=== PATIENT | male | born 1975 | race Caucasian/White ===

== ENCOUNTER → 2017-03-29 | Emergency (ER) | payer SELFPAY ==
[~2017-03-29] MED LIST: NAPROXEN 500 MG TABLET (FP) PO ONE
[2017-03-29 20:46] VITALS: BP 121/81; PULSE 79; TEMP 98.4; BMI 26.4
--- NOTE | 2017-03-29 21:55 | PDOC ---
History of Present Illness - General History Source: Patient Exam Limitations: No Limitations - History of Present Illness Initial Comments: 03/29/17 22:27 Pt c/o chest pain after heavy lifting. Pt denies any medical problems. Denies smoking or drug use. Didn't take any thing for pain. <SohailEthan marie - Last Filed: 03/29/17 22:16> <Sommer Sutton - Last Filed: 03/29/17 22:35> - General Chief Complaint: Pain Stated Complaint: CHEST PAIN Time Seen by Provider: 03/29/17 21:51 Past History - Past Medical History GI Disorders: Yes (GERD) - Psycho/Social/Smoking Cessation Hx Suicidal Ideation: No Smoking History: Former smoker Have you smoked in the past 12 months: No If you are a former smoker, when did you quit?: 10 yrs ago Information on smoking cessation initiated: No Hx Alcohol Use: No Drug/Substance Use Hx: No Substance Use Type: None <SohailEthan marie - Last Filed: 03/29/17 22:16> <Sommer Sutton - Last Filed: 03/29/17 22:35> - Past Medical History Allergies/Adverse Reactions: Allergies Allergy/AdvReac Type Severity Reaction Status Date / Time No Known Allergies Allergy Verified 03/29/17 20:43 Review of Systems - Review of Systems Able to Perform ROS?: Yes Is the patient limited Hebrew proficient: No Constitutional: Yes: Symptoms Reported, See HPI. No: Chills, Diaphoresis, Fever , Loss of Appetite, Malaise, Weight Stable HEENTM: Yes: Symptoms Reported, See HPI. No: Eye Pain, Blurred Vision, Tearing , Recent change in vision, Double Vision, Cataracts, Ear Pain, Ocular Prothesis , Ear Discharge, Nose Pain, Nose Congestion, Tinnitus, Throat Swelling, Mouth Pain, Other Respiratory: Yes: Symptoms reported, See HPI. No: Cough, Orthopnea, Shortness of Breath, SOB with Exertion, SOB at Rest, Stridor, Productive cough Cardiac (ROS): Yes: Symptoms Reported, See HPI, Chest Pain, Edema. No: Irregular Heart Rate, Lightheadedness, Syncope, Chest Tightness, Other ABD/GI: Yes: Symptoms Reported, See HPI. No: Abdominal Distended, Abd. Pain w/ defecation, Blood Streaked Bowels, Constipated, Diarrhea, Nausea, Poor Appetite , Poor Fluid Intake, Abdominal cramping : Yes: Symptoms Reported, See HPI. No: Burning, Dysuria, Discharge, Frequency , Flank Pain, Hematuria, Urgency, Testicular Swelling Musculoskeletal: Yes: Symptoms Reported, See HPI. No: Back Pain, Gout, Joint Pain, Joint Swelling, Muscle Pain, Neck Pain Integumentary: Yes: Symptoms Reported, See HPI. No: Bruising, Change in Color, Change in Hair/Nails, Dryness, Erythema, Flushing, Lesions, Lumps Neurological: Yes: Symptoms reported, See HPI. No: Headache, Numbness, Paresthesia, Pre-Existing Deficit, Seizure, Weakness Psychiatric: No: Anxiety, Depression, Frequent Crying, Stressors, Sleep Pattern Change, Other Endocrine: Yes: Symptoms Reported, See HPI. No: Excessive Sweating, Flushing, Intolerance to Cold, Increased Hunger, Increased Thirst, Increased Urine, Unexplained Weight Gain Hematologic/Lymphatic: Yes: Symptoms Reported, See HPI. No: Anemia, Blood Clots , Easy Bleeding, Easy Bruising, Bleeding Diathesis <Ethan Thrasher - Last Filed: 03/29/17 22:16> *Physical Exam - Vital Signs Last Vital Signs Temp Pulse Resp BP Pulse Ox 98.4 F 79 18 121/81 99 03/29/17 20:44 03/29/17 20:44 03/29/17 20:44 03/29/17 20:44 03/29/17 20:44 - Physical Exam Comments: 03/29/17 22:25 *Physical Exam General Appearance: Yes: Appropriately Dressed. No: Apparent Distress, Intoxicated HEENT: positive: EOMI, WILFRED, Normal ENT Inspection, Normal Voice, TMs Normal, Pharynx Normal. negative: Pale Conjunctivae, Photophobia, Scleral Icterus (R), Scleral Icterus (L) Neck: positive: Trachea midline, Normal Thyroid, Supple. negative: Tender, Rigid, Carotid bruit, Stridor, Lymphadenopathy (R), Lymphadenopathy (L), Thyromegaly Respiratory/Chest: positive: Lungs Clear, Normal Breath Sounds. negative: Chest Tender, Respiratory Distress, Accessory Muscle Use, Labored Respiration, RES, Crackles, Rales, Rhonchi, Stridor, Wheezing, Dullness Cardiovascular: positive: Regular Rhythm, Regular Rate, S1, S2. negative: Edema , JVD, Murmur, Bradycardia, Tachycardia Vascular Pulses: Dorsalis-Pedis (R): 2+, Doralis-Pedis (L): 2+ Gastrointestinal/Abdominal: positive: Normal Bowel Sounds, Flat, Soft. negative : Tender, Organomegaly, Pulsatile Mass, Increased Bowel Sounds, Decreased BS, Distended, Guarding, Rebound, Hernia, Hepatomegaly, Spleenomegaly Lymphatic: negative: Adenopathy, Tenderness Musculoskeletal: positive: Normal Inspection. negative: CVA Tenderness, Decreased Range of Motion Extremity: positive: Normal Capillary Refill, Normal Inspection, Normal Range of Motion, Pelvis Stable. negative: Tender, Pedal Edema, Swelling, Erythema Integumentary: positive: Normal Color, Dry, Warm. 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 negative: EOM Palsy, Facial Droop, Sensory Deficit <Ethan Thrasher - Last Filed: 03/29/17 22:16> - Vital Signs Last Vital Signs Temp Pulse Resp BP Pulse Ox 98.4 F 79 18 121/81 99 03/29/17 20:44 03/29/17 20:44 03/29/17 20:44 03/29/17 20:44 03/29/17 20:44 <Sommer Sutton - Last Filed: 03/29/17 22:35> Heart Score/ECG Review - ECG Impressions Comment:: 03/29/17 22:35 NSR @78bpm Normal ECG <Sommer Sutton - Last Filed: 03/29/17 22:35> ED Treatment Course - Medications Given in the ED: ED Medications Discontinued Medications Generic Name Dose Route Start Last Admin Trade Name Freq PRN Reason Stop Dose Admin Naproxen 500 mg 03/29/17 21:57 03/29/17 22:30 Naprosyn - PO 03/29/17 21:58 Not Given ONCE ONE <Sommer Sutton - Last Filed: 03/29/17 22:35> Medical Decision Making - Medical Decision Making 03/29/17 22:1 Dr. Thrasher: The scribe's documentation has been prepared under my direction and personally reviewed by me in its entirery. I confirm that the note above accurately reflects all work, treatment, procedures, and medical decision making performed by me. patient c/o chest pain, but didn't want to wait for anything to be done. Pt walked out. <Ethan Thrasher - Last Filed: 03/29/17 22:16> *DC/Admit/Observation/Transfer - Discharge Dispostion Admit: No <Ethan Thrasher - Last Filed: 03/29/17 22:16> <Sommer Sutton - Last Filed: 03/29/17 22:35> Diagnosis at time of Disposition: Chest pain Qualifiers: Chest pain type: unspecified Qualified Code(s): R07.9 - Chest pain, unspecified - Discharge Dispostion Disposition: ELOPED Condition at time of disposition: Stable
--- NOTE | 2017-03-30 13:02 | EKG ---
Test Reason : Blood Pressure : / mmHG Vent. Rate : 078 BPM Atrial Rate : 078 BPM P-R Int : 188 ms QRS Dur : 096 ms QT Int : 372 ms P-R-T Axes : 060 084 056 degrees QTc Int : 424 ms NORMAL SINUS RHYTHM NORMAL ECG NO PREVIOUS ECGS AVAILABLE REPEAT EKG IF CLINICALLY INDICATED Confirmed by TAWNYA FIGUEROA MD ([id number]) on 03/30/2017 1:01:46 PM Referred By: Confirmed By:ATWNYA FIGUEROA MD
== END | disposition left against medical advice (07) ==
LOC: JER 20:31
CPT/HCPCS: 93005; 93010; 99281-25

== ENCOUNTER 2017-04-13 19:53 | Emergency (ER) | payer SELFPAY ==
[2017-04-13 20:14] VITALS: BP 146/76; PULSE 63; TEMP 98.5; BMI 26.4
[2017-04-13] MEDS ORDERED: TRIAMCINOLONE ACET 40MG/1ML VIAL ONE (21:41)
[2017-04-13] MEDS ORDERED: TRIAMCINOLONE ACET 40MG/1ML VIAL IM ONE (21:45)
[2017-04-13] MEDS ORDERED: diphenhydrAMINE HCL 25 MG CAPSULE (FP) PO ONE ×2 (21:46→21:48)
--- NOTE | 2017-04-13 21:52 | PDOC ---
History of Present Illness - General Chief Complaint: Rash Stated Complaint: RASH Time Seen by Provider: 04/13/17 21:10 History Source: Patient Exam Limitations: No Limitations - History of Present Illness Initial Comments: 04/13/17 21:49 Came to emergency department for evaluation of acute onset of itching hives and wheals to his right leg that spread to his left leg and now has some issues to his back. Patient is uncertain as to cause and has reviewed any new soaps lotions, creams, detergents, no outdoor or environmental exposures, no one else at home with a rash. Patient denies swelling to lips tongue or breathing problems, has no history of ALLERGIES, and no recent travel. Timing/Duration: reports: changing over time, getting worse Severity: Yes: mild, moderate Location: reports: extremities, torso Respiratory Risk Factors: reports: no cause identified Modifying Factors: worse with: antihistamine Associated Symptoms: reports: denies symptoms Past History - Travel Traveled outside of the country in the last 30 days: No Close contact w/someone who was outside of country & ill: No - Past Medical History Allergies/Adverse Reactions: Allergies Allergy/AdvReac Type Severity Reaction Status Date / Time No Known Allergies Allergy Verified 03/29/17 20:43 Home Medications: Ambulatory Orders NK [No Known Home Medication] 04/13/17 GI Disorders: Yes (GERD) - Psycho/Social/Smoking Cessation Hx Suicidal Ideation: No Smoking History: Former smoker Have you smoked in the past 12 months: No If you are a former smoker, when did you quit?: 10 yrs ago Information on smoking cessation initiated: No Hx Alcohol Use: No Drug/Substance Use Hx: No Substance Use Type: None Review of Systems - Review of Systems Able to Perform ROS?: Yes Is the patient limited Croatian proficient: Yes Constitutional: Yes: See HPI. No: Symptoms Reported, Fever, Loss of Appetite, Malaise HEENTM: Yes: See HPI. No: Symptoms Reported, Nose Congestion, Throat Swelling, Difficulty Swallowing, Mouth Swelling Respiratory: Yes: See HPI. No: Symptoms reported, Cough, Shortness of Breath, Wheezing Integumentary: Yes: Symptoms Reported, See HPI, Flushing, Lesions, Pruritus, Rash Neurological: No: Symptoms reported All Other Systems: Reviewed and Negative *Physical Exam - Vital Signs Last Vital Signs Temp Pulse Resp BP Pulse Ox 98.5 F 63 17 146/76 100 04/13/17 20:12 04/13/17 20:12 04/13/17 20:12 04/13/17 20:12 04/13/17 20:12 - Physical Exam General Appearance: Yes: Nourished, Appropriately Dressed, Apparent Distress, Mild Distress HEENT: positive: WILFRED, Normal ENT Inspection (no swelling, airway closure, or evidence of angioedema noted), TMs Normal, Pharynx Normal Neck: negative: Tender Respiratory/Chest: positive: Lungs Clear, Normal Breath Sounds. negative: Wheezing Musculoskeletal: positive: Normal Inspection Extremity: positive: Normal Capillary Refill, Normal Inspection, Normal Range of Motion Integumentary: positive: Pale, Other (multiple areas of confluent hives and wheal-like lesions noted on thighs, bilateral, abdomen, and one noted on back. There is none noted above waist) Neurologic: positive: ux consultant II-XII NML intact, Fully Oriented, Alert, Normal Mood/ Affect, Normal Response, Motor Strength 5/5 Progress Note - Progress Note Progress Note: ALLERGIC reaction of unknown etiology, will treat with Kenalog aND ANTIHISTAMINE *DC/Admit/Observation/Transfer Diagnosis at time of Disposition: Hives - Discharge Dispostion Disposition: HOME Condition at time of disposition: Stable Admit: No - Patient Instructions Printed Discharge Instructions: DI for General Allergic Reactions Additional Instructions: Rest, drink lots of fluids: Teas, water, soups Avoid contact with allergens, exposure to pollens, close windows on a windy day Lots of handwashing and good hygiene Continue [id number] medications for symptomatic relief- may use allergic eyedrops for itching I Continue antihistamines daily until pollen season is over; Zyrtec, Claritin, Tiffani during the daytime and Benadryl at nighttime as will make sleepy Tylenol or Motrin for fever and pain Followup with private physician in one to 2 days as needed Consider following up with an installer/sanitizer for skin testing and possible allergy shots Return to emergency department for worsened symptoms, fevers, dehydration - Post Discharge Activity Work/School Note: Back to Work
== END 2017-04-13 22:08 | disposition home or self-care (01) ==
LOC: JERFT 19:53
PROC: 3E0233Z Introduction of Anti-inflammatory into Muscle, Percutaneous Approach (ICD-10-PCS; principal; 2017-04-13)
DX: L50.9 Urticaria, unspecified (principal)
CPT/HCPCS: 99281-25

== ENCOUNTER 2018-08-18 14:46 | Emergency (ER) | payer OTHER ==
--- NOTE | 2018-08-18 14:55 | PDOC ---
Rapid Medical Evaluation Time Seen by Provider: 08/18/18 14:53 Medical Evaluation: Allergies Allergy/AdvReac Type Severity Reaction Status Date / Time No Known Allergies Allergy Verified 06/14/17 19:20 08/18/18 14:53 Pt c/o: back pain intermittent x months, no other complaints, took no meds and did not see a provider Pt on exam: no midline tenderness, no edema Pt ordered for: none Pt to proceed to the ED Discharge Disposition - Diagnosis Back pain - Referrals - Patient Instructions - Post Discharge Activity
[2018-08-18 14:57] VITALS: BP 141/91; PULSE 88; TEMP 98.6; BMI 27.5
--- NOTE | 2018-08-18 16:27 | PDOC ---
History of Present Illness - General Chief Complaint: Pain Stated Complaint: BACK PAIN Time Seen by Provider: 08/18/18 14:53 History Source: Patient Exam Limitations: No Limitations - History of Present Illness Initial Comments: 08/18/18 16:22 Patient came to emergency department with complaints of multiple months of mid and low back pain. States comes and goes but has steadily worse. May have injured himself at gym 8 months ago doing heavy lifting but has never had evaluation. Has taken no medication for relief of pain as "I do not like to drink medicine" . Denies numbness or tingling to hands or feet, denies any problems with bowel or bladder, denies fever or any recent illness. 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 08/18/18 19:04 Occurred: reports: other Severity: reports: mild, moderate Pain Location: reports: back Method of Injury: Yes: unknown Loss of Consciousness: no loss of consciousness Associated Symptoms (Fall): denies symptoms Past History - Travel Traveled outside of the country in the last 30 days: No Close contact w/someone who was outside of country & ill: No - Past Medical History Allergies/Adverse Reactions: Allergies Allergy/AdvReac Type Severity Reaction Status Date / Time No Known Allergies Allergy Verified 06/14/17 19:20 Home Medications: Ambulatory Orders Cyclobenzaprine HCl 10 mg PO Q8H PRN #14 tablet 08/18/18 Naproxen [Naprosyn -] 500 mg PO BID #30 tablet 08/18/18 COPD: No GI Disorders: Yes (GERD) - Surgical History Cholecystectomy: Yes - Suicide/Smoking/Psychosocial Hx Smoking History: Never smoked Have you smoked in the past 12 months: No If you are a former smoker, when did you quit?: 10 yrs ago Information on smoking cessation initiated: No Hx Alcohol Use: No Drug/Substance Use Hx: No Substance Use Type: None Review of Systems - Review of Systems Able to Perform ROS?: Yes Is the patient limited Greenlandic proficient: Yes Constitutional: Yes: Symptoms Reported, See HPI, Malaise. No: Fever HEENTM: Yes: See HPI. No: Symptoms Reported Respiratory: Yes: See HPI. No: Symptoms reported ABD/GI: Yes: Symptoms Reported, See HPI, Nausea, Abdominal cramping ( intermittant RUQ pain for years / post op [place] years ago) : Yes: See HPI. No: Symptoms Reported Musculoskeletal: Yes: Symptoms Reported, See HPI, Back Pain, Muscle Pain. No: Muscle Weakness Integumentary: No: Symptoms Reported All Other Systems: Reviewed and Negative *Physical Exam - Vital Signs Last Vital Signs Temp Pulse Resp BP Pulse Ox 98.6 F 88 18 141/91 99 08/18/18 14:53 08/18/18 14:53 08/18/18 14:53 08/18/18 14:53 08/18/18 14:53 - Physical Exam General Appearance: Yes: Nourished, Appropriately Dressed, Apparent Distress, Mild Distress HEENT: positive: WILFRED, Normal ENT Inspection, TMs Normal, Pharynx Normal Neck: positive: Supple. negative: Tender Respiratory/Chest: positive: Lungs Clear, Normal Breath Sounds Gastrointestinal/Abdominal: positive: Normal Bowel Sounds, Soft Musculoskeletal: positive: Normal Inspection, Decreased Range of Motion (mild diminished), Muscle Spasm (tight tense muscle groups to the paravertebral spinous muscles at waistline worse on the right than the left). 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 intact, Fully Oriented, Alert, Normal Mood/ Affect, Normal Response, Motor Strength 5/5 Moderate Sedation - Procedure Monitoring Vital Signs: Procedure Monitoring Vital Signs Temperature 98.6 F 08/18/18 14:53 Pulse Rate 88 08/18/18 14:53 Respiratory Rate 18 08/18/18 14:53 Blood Pressure 141/91 08/18/18 14:53 O2 Sat by Pulse Oximetry (%) 99 08/18/18 14:53 Progress Note - Progress Note Progress Note: Back strain, will treat with NSAIDs and cyclobenzaprine *DC/Admit/Observation/Transfer Diagnosis at time of Disposition: Back pain Qualifiers: Back pain location: low back pain Chronicity: unspecified Back pain laterality : bilateral Sciatica presence: without sciatica Qualified Code(s): M54.5 - Low back pain - Discharge Dispostion Disposition: HOME Condition at time of disposition: Stable Decision to Admit order: No - Prescriptions Prescriptions: Cyclobenzaprine HCl 10 mg PO Q8H PRN #14 tablet PRN Reason: spasm Naproxen [Naprosyn -] 500 mg PO BID #30 tablet - Referrals - Patient Instructions Printed Discharge Instructions: DI for Back Spasm Additional Instructions: Rest, no heavy lifting or exercise until pain is resolved Hot soaks to neck and low back as often as possible/hot showers or Jacuzzis No massage or therapy until spasm is gone Continue Naprosyn 500 mg tablet, 1 tablet every 8 hours for the next 3 days then as needed for pain and swelling Cyclobenzaprine 1-10mg every 8 hours as needed for spasm If not significant improvement within 24 hours with medication and rest regime, followup with private physician for change in medications and /or therapy. - Post Discharge Activity Forms/Work/School Notes: Back to Work
[2018-08-18 16:43] LABS: URINE APPEARANCE CLEAR; URINE BILIRUBIN NEGATIVE (<2.0 mg/dL); URINE COLOR LTYELLOW; URINE GLUCOSE (UA) NEGATIVE (NEGATIVE); URINE KETONE NEGATIVE (NEGATIVE); URINE LEUK ESTERASE NEGATIVE (NEGATIVE); URINE NITRITE NEGATIVE (NEGATIVE); URINE PROTEIN NEGATIVE (NEGATIVE); URINE UROBILINOGEN NEGATIVE mg/dL (0.2-1.0)
[2018-08-18 17:01] LABS: URINE MUCUS RARE
== END 2018-08-18 17:10 | disposition home or self-care (01) ==
LOC: JERFT 14:46
DX: S39.012A Strain of muscle, fascia and tendon of lower back, initial encounter (principal); X50.0XXA Overexertion from strenuous movement or load, initial encounter; Y93.89 Activity, other specified; Y92.89 Other specified places as the place of occurrence of the external cause; Y99.8 Other external cause status
CPT/HCPCS: 81003; 81015; 99281-25

== ENCOUNTER → 2018-12-08 | Emergency (ER) | payer OTHER ==
[2018-12-08 10:35] VITALS: BP 116/80; PULSE 87; TEMP 98.7; BMI 28.1
--- NOTE | 2018-12-08 11:36 | PDOC ---
History of Present Illness - General Chief Complaint: Lightheaded Stated Complaint: DIZZYNESS Time Seen by Provider: 12/08/18 11:08 History Source: Patient - History of Present Illness Initial Comments: 12/08/18 11:22 43 year old male history of vertigo currently on Valium. patient reports that he ran out of medication has dizziness. patient does not have a PCP patient is here for refill. Past History - Past Medical History Allergies/Adverse Reactions: Allergies Allergy/AdvReac Type Severity Reaction Status Date / Time No Known Allergies Allergy Verified 06/14/17 19:20 Home Medications: Ambulatory Orders Diazepam [Valium] 5 mg PO DAILY PRN 5 Days #5 tablet MDD 1 12/08/18 Diphenhydramine HCl [Benadryl -] 25 mg PO Q6H PRN #14 capsule 12/08/18 Omeprazole 20 mg PO PRN PRN 12/08/18 COPD: No GI Disorders: Yes (GERD) Other medical history: vertigo - Surgical History Cholecystectomy: Yes - Immunization History Immunization Up to Date: No - Suicide/Smoking/Psychosocial Hx Smoking History: Never smoked Have you smoked in the past 12 months: No If you are a former smoker, when did you quit?: 10 yrs ago Information on smoking cessation initiated: No Hx Alcohol Use: No Drug/Substance Use Hx: No Substance Use Type: None Review of Systems - Review of Systems Able to Perform ROS?: Yes Is the patient limited Italian proficient: No Constitutional: No: Symptoms Reported, See HPI, Chills, Diaphoresis, Fever, Loss of Appetite, Malaise, Night Sweats, Weakness, Weight Stable, Unintentional Wgt. Loss, Unexplained wgt Loss, Other Neurological: Yes: Dizziness. No: Symptoms reported, See HPI, Headache, Numbness, Paresthesia, Pre-Existing Deficit, Seizure, Tingling, Tremors, Weakness, Unsteady Gait, Ataxia, Other *Physical Exam - Vital Signs Last Vital Signs Temp Pulse Resp BP Pulse Ox 98.7 F 87 18 116/80 100 12/08/18 10:32 12/08/18 10:32 12/08/18 10:32 12/08/18 10:32 12/08/18 10:32 - Physical Exam General Appearance: Yes: Appropriately Dressed Extremity: positive: Normal Capillary Refill, Normal Inspection, Normal Range of Motion Integumentary: positive: Normal Color, Dry, Warm Neurologic: positive: Fully Oriented, Alert, Other (+ hill schilling [place]) Medical Decision Making - Medical Decision Making 12/08/18 11:36 A: vertigo P: patient was referred to the [facility] Primary clinic by Diaz. patient will get a call from the office tomorrow. patient is aware of this and the importance of follow up was discussed with patient. will give valium. patient reports meclizine to cause drowsiness. reports that valium works better. will give benadryl instead. *DC/Admit/Observation/Transfer Diagnosis at time of Disposition: Vertigo - Discharge Dispostion Disposition: HOME Condition at time of disposition: Stable - Prescriptions Prescriptions: Diazepam [Valium] 5 mg PO DAILY PRN 5 Days #5 tablet MDD 1 PRN Reason: Vertigo Diphenhydramine HCl [Benadryl -] 25 mg PO Q6H PRN #14 capsule PRN Reason: vertigo - Referrals Referrals: Nelson Lundy MD [Staff Physician] - Call tomorrow - Patient Instructions Printed Discharge Instructions: Benign Paroxysmal Positional Vertigo Additional Instructions: It is important to drink plenty of fluids. Careful when going from sitting to standing duty or dizziness. You are given Benadryl and Valium which is to help with the vertigo. Both medications can make you sleepy and drowsy. Do not drive or operate heavy machinery after taking this medication. You will be getting a call from the primary care clinic in the next 1-2 days. Please call please call the clinic if he do not hear from them. - Post Discharge Activity Forms/Work/School Notes: Back to Work
== END | disposition home or self-care (01) ==
LOC: JERFT 10:27
DX: R42 Dizziness and giddiness (principal)
CPT/HCPCS: 99281-25

== ENCOUNTER 2018-12-26 10:54 | Inpatient (IN) | payer OTHER ==
[2018-12-26 11:35] VITALS: BMI 27.5
[2018-12-26] MEDS ORDERED: SUCRALFATE 1 GM TABLET (FP) PO ONE (11:57)
[2018-12-26] MEDS ORDERED: FAMOTIDINE 20 MG/50 ML IVPB 20 MG/50 ML MG IVPB ONE ×2 (11:57→12:38)
--- NOTE | 2018-12-26 12:01 | PDOC ---
History of Present Illness - General History Source: Patient - History of Present Illness Timing/Duration: reports: constant, getting worse Quality: reports: severe Abdominal Pain Onset Location: reports: epigastric Pain Radiation: reports: back <Ellen Lara - Last Filed: 12/27/18 07:23> <Christie Cedeno - Last Filed: 12/27/18 14:57> - General Chief Complaint: Pain, Acute Stated Complaint: ABD PAIN Time Seen by Provider: 12/26/18 11:54 Past History - Past Medical History COPD: No GI Disorders: Yes (GERD) - Surgical History Cholecystectomy: Yes - Immunization History Immunization Up to Date: No - Suicide/Smoking/Psychosocial Hx Smoking History: Never smoked Have you smoked in the past 12 months: No If you are a former smoker, when did you quit?: 10 yrs ago Hx Alcohol Use: No Drug/Substance Use Hx: No Substance Use Type: None <Ellen Lara - Last Filed: 12/27/18 07:23> <PaoChristie Cedenoizabel - Last Filed: 12/27/18 14:57> - Past Medical History Allergies/Adverse Reactions: Allergies Allergy/AdvReac Type Severity Reaction Status Date / Time No Known Allergies Allergy Verified 12/26/18 11:32 Home Medications: Ambulatory Orders Omeprazole 20 mg PO PRN PRN 12/08/18 Review of Systems - Review of Systems Constitutional: No: Chills, Fever Respiratory: No: Shortness of Breath Cardiac (ROS): No: Chest Pain ABD/GI: No: Constipated, Diarrhea, Nausea, Rectal Bleeding, Vomiting, Tarry Stools : No: Dysuria, Flank Pain, Hematuria <Ellen Lara - Last Filed: 12/27/18 07:23> *Physical Exam - Vital Signs Last Vital Signs Temp Pulse Resp BP Pulse Ox 98.1 F 73 18 117/78 99 12/26/18 11:32 12/26/18 11:32 12/26/18 11:32 12/26/18 11:32 12/26/18 11:32 - Physical Exam General Appearance: Yes: Appropriately Dressed. No: Apparent Distress HEENT: positive: Normal Voice Neck: positive: Supple Respiratory/Chest: positive: Lungs Clear, Normal Breath Sounds. negative: Respiratory Distress Cardiovascular: positive: Regular Rate, S1, S2 Gastrointestinal/Abdominal: positive: Normal Bowel Sounds, Tender (to epigastrium and RUQ), Soft. negative: Distended, Guarding, Rebound Musculoskeletal: negative: CVA Tenderness Integumentary: positive: Dry, Warm Neurologic: positive: Fully Oriented, Alert, Normal Mood/Affect <Beatriz LaraVivianeShaila - Last Filed: 12/27/18 07:23> - Vital Signs Last Vital Signs Temp Pulse Resp BP Pulse Ox 98.1 F 73 18 117/78 99 12/26/18 11:32 12/26/18 11:32 12/26/18 11:32 12/26/18 11:32 12/26/18 11:32 <Christie Cedeno - Last Filed: 12/27/18 14:57> ED Treatment Course - LABORATORY CBC & Chemistry Diagram: 12/26/18 13:25 12/26/18 13:25 <Beatriz LaraVivianeShaila - Last Filed: 12/27/18 07:23> - LABORATORY CBC & Chemistry Diagram: 12/27/18 07:16 12/27/18 07:16 <Christie Cedeno - Last Filed: 12/27/18 14:57> Medical Decision Making - Medical Decision Making 12/26/18 11:54 43 yo M, h/o GERD, p/w upper abdominal pain. Patient states for the past month he's had intermittent epigastric pain radiating to his back that worsened 1 week ago, now constant and worse with po. Possible excessive belching. No nausea, vomiting, change to bowel movements, melena, bright red blood per rectum , fever or chills. Reports dark urine this am but no dysuria, BRB or flank pain. States current symptoms does feel like his GERD but is taking omeprazole daily with no relief. Last time seen by GI was 5 years ago when patient also had an EGD, but does not remember results per patient. No history of peptic ulcer disease. See exam Possible GERD flare given hx, consider choledocholithiases (s/p kiara remotely) vs pancreatitis given r/t back, unlikely appy or ACS -GI cocktail -labs r/o other source -anticipate dc w/ GI f/u 12/26/18 14:40 LFTs sig elevated, no old to compare. Lipase wnl. US pending 12/26/18 16:25 US read as no e/o biliary dilitation or other acute pathology. Per discussion with patient, might have been told he had elevated LFTs of unclear etiology in past. Denies h/o ETOH abuse, excessive tylenol use, hepatitis, h/o IVDA or recent travel. No unexplained weight loss. Will scan at this time and send hep panel and coags as d/w ED attg 12/26/18 18:28 CT read as mild dilation of intrahepatic biliary tree, w/ CBD 8mm w/ no e/o CBD stone, MRCP recommended for further eval. Pt states epigastric pain now coming back now. Will c/w GI at this time 12/26/18 19:31 Case d/w Dr Waters of GI who is concerned for possible cholodocholiathisis/ cholangitis. Rec blood cx, MRCP, npo and admit. Pt signed out to CAROL Glaser pending admission <Ellen Lara - Last Filed: 12/27/18 07:23> - Medical Decision Making The patient was seen and evaluated in conjunction with midlevel provider under my direct supervision, ancillary studies were reviewed. I agree with the plan as outlined JOON Lara. HPI, workup/dispo as outlined. VS reviewed, wnl. s/p kiara, but +transaminitis present significantly raising concern for choledocholithiasis with very small stones/sludge in biliary tree. t bili elevated. no e/o sepsis, no fever no leukocytosis. retained biliary stones, Abdomen US indicated. though abdomen US revealed no e/o stones, with some intra hepatic duct dilation , I have reviewed and visualized densities and shadowing of stones - suggestive of retained biliary stones/choledocholithiasis. will need admission, GI cs with dr Waters and MRCP vs ERCP and further elucidate/management 12/26/18 12:32 12/26/18 15:34 12/27/18 14:55 12/27/18 14:56 <Christie Cedeno - Last Filed: 12/27/18 14:57> *DC/Admit/Observation/Transfer <Ellen Lara - Last Filed: 12/27/18 07:23> <Christie Cedeno - Last Filed: 12/27/18 14:57> Diagnosis at time of Disposition: Epigastric pain, Elevated LFTs
[2018-12-26] MEDS ORDERED: SUCRALFATE 1 GM TABLET (FP) ONE (13:12)
[2018-12-26 13:41] LABS: BASO % 0.8 % (0-2.0); EOS % 1.2 % (0-4.5); HEMATOCRIT 49.2 % (35.4-49); HEMOGLOBIN 16.6 GM/dL (11.7-16.9); LYMPH % 16.1 % (8-40); MCH 30.7 pg (25.7-33.7); MCHC 33.8 g/dl (32.0-35.9); MEAN CELL VOLUME 90.9 fl (80-96); MEAN PLT VOLUME 8.4 fl (7.5-11.1); MONO % 7.6 % (3.8-10.2); NEUT % 74.3 % (42.8-82.8); PLATELET COUNT 184 K/MM3 (134-434); RBC 5.42 M/mm3 (4.00-5.60); RDW 13.7 % (11.9-15.9); WHITE BLOOD COUNT 5.6 K/mm3 (4.0-10.0)
[2018-12-26 14:04] LABS: ALBUMIN 3.7 g/dl (3.4-5.0); BILIRUBIN,TOTAL 2.2 mg/dL (0.2-1); CALCIUM 8.7 mg/dL (8.5-10.1); CREATININE 0.8 mg/dL (0.55-1.3); POTASSIUM 3.9 mmol/L (3.5-5.1); TOT PROT 7.1 g/dl (6.4-8.2)
[2018-12-26 17:06] LABS: URINE APPEARANCE CLEAR; URINE BILIRUBIN 1+ (NEGATIVE); URINE COLOR DK YELLOW; URINE GLUCOSE (UA) NEGATIVE (NEGATIVE); URINE KETONE NEGATIVE (NEGATIVE); URINE LEUK ESTERASE NEGATIVE (NEGATIVE); URINE NITRITE NEGATIVE (NEGATIVE); URINE PROTEIN NEGATIVE (NEGATIVE)
[2018-12-26] MEDS ORDERED: ACETAMINOPHEN 325 MG TABLET (FP) ONE (17:18)
[2018-12-26 17:28] LABS: PROTHROMBIN TIME (PATIENT) 11.8 SEC (9.7-13.0)
[2018-12-26] MEDS ORDERED: SODIUM CHLORIDE 1,000 ML IV STA (19:29)
[2018-12-26] MEDS ORDERED: morphine CARPU-JECT 4 MG/1 ML DISP.SYRIN IVPUSH ONE (19:29)
[2018-12-26] MEDS ORDERED: morphine SULFATE 4 MG/ML VIAL ONE (19:53)
--- NOTE | 2018-12-26 20:58 | PDOC ---
*Physical Exam - Vital Signs Last Vital Signs Temp Pulse Resp BP Pulse Ox 98.1 F 73 18 117/78 99 12/26/18 11:32 12/26/18 11:32 12/26/18 11:32 12/26/18 11:32 12/26/18 11:32 - Physical Exam General Appearance: Yes: Appropriately Dressed Gastrointestinal/Abdominal: positive: Normal Bowel Sounds, Soft. negative: Tender Neurologic: positive: Fully Oriented, Alert ED Treatment Course - LABORATORY CBC & Chemistry Diagram: 12/26/18 13:25 12/26/18 13:25 - ADDITIONAL ORDERS Additional order review: Laboratory Results 12/26/18 12/26/18 12/26/18 17:00 17:00 13:25 PT with INR 11.80 INR 1.00 Sodium 135 L Potassium 3.9 Chloride 105 Carbon Dioxide 23 Anion Gap 8 BUN 12 Creatinine 0.8 Est GFR (CKD-EPI)AfAm 128.60 Est GFR (CKD-EPI)NonAf 110.96 Random Glucose 94 Calcium 8.7 Total Bilirubin 2.2 H AST 690 H ALT 802 H Alkaline Phosphatase 213 H Total Protein 7.1 Albumin 3.7 Lipase 199 Urine Color Dk yellow Urine Appearance Clear Urine pH 6.0 Ur Specific [place] 1.011 Urine Protein Negative Urine Glucose (UA) Negative Urine Ketones Negative Urine Blood Negative Urine Nitrite Negative Urine Bilirubin 1+ H Urine Urobilinogen 1.0 Ur Leukocyte Esterase Negative 12/26/18 13:25 RBC 5.42 MCV 90.9 MCHC 33.8 RDW 13.7 MPV 8.4 Neutrophils % 74.3 Lymphocytes % 16.1 Monocytes % 7.6 Eosinophils % 1.2 Basophils % 0.8 - Medications Given in the ED: ED Medications Discontinued Medications Generic Name Dose Route Start Last Admin Trade Name Freq PRN Reason Stop Dose Admin Famotidine/Sodium Chloride 20 mg in 50 mls @ 100 mls/hr 12/26/18 11:57 12:56 Pepcid 20 Mg Premixed Ivpb - IVPB 12/26/18 12:26 100 mls/hr ONCE ONE Administration Sodium Chloride 1,000 mls @ 1,000 mls/hr 12/26/18 19:29 12/26/18 19:56 Normal Saline - IV 12/26/18 20:28 1,000 mls/hr ASDIR STA Administration Morphine Sulfate 4 mg 12/26/18 19:29 12/26/18 19:56 Morphine Injection - IVPUSH 12/26/18 19:30 Not Given ONCE ONE Sucralfate 1 gm 12/26/18 11:57 12/26/18 13:29 Carafate - PO 12/26/18 11:58 1 gm ONCE ONE Administration Medical Decision Making - Medical Decision Making 12/26/18 20:57 pending admission. patient to be admitted/ obs under hospitalist service. Pending [facility] 12/26/2018 patient signed out to Dr. Aceves . patient has also been seen by Dr. Butler. *DC/Admit/Observation/Transfer Diagnosis at time of Disposition: Epigastric pain, Elevated LFTs - Discharge Dispostion Decision to Admit order: Yes Decision to Admit order Date/Time: Decision to Admit Order Category Date Time Status Decision to Admit to Hospital Routine Admission 12/26/18 20:56 Ordered - Referrals - Patient Instructions - Post Discharge Activity
--- NOTE | 2018-12-26 21:25 | CON.GI ---
Consult Consult Specialty:: Gastroenterology ( covering [facility] GI service) Referred by:: JOON Mata Reason for Consultation:: Abdominal pain - History of Present Illness Chief Complaint: Severe abdominal pain History of Present Illness: 43M presents with pain radiating into the back and significantly elevated transaminases and TB of 2.2. He is s/p GB surgery. His CBD is dilated. He has been having episodes of biliary colic for the past year, often they are postprandial. He had an EGD an [facility] with Dr Becker several years ago which was unremarkable. Today his urine became honorio colored, He denies any h/o liver disease. 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 Place of : Other ([facility]) History of Recent Travel: No Home Medications - Allergies Allergies/Adverse Reactions: Allergies Allergy/AdvReac Type Severity Reaction Status Date / Time No Known Allergies Allergy Verified 12/26/18 11:32 - Home Medications Home Medications: Ambulatory Orders Omeprazole 20 mg PO PRN PRN 12/08/18 Family Disease History - Family Disease History Family Disease History: Other: Father (healthy), Mother (healthy) Review of Systems - Review of Systems Constitutional: reports: No Symptoms Eyes: reports: No Symptoms HENT: reports: No Symptoms Neck: reports: No Symptoms Cardiovascular: reports: No Symptoms Respiratory: reports: No Symptoms Gastrointestinal: reports: Abdominal Pain Genitourinary: reports: No Symptoms Physical Exam-GI Vital Signs: Vital Signs Temperature 98.1 F 12/26/18 11:32 Pulse Rate 73 12/26/18 11:32 Respiratory Rate 18 12/26/18 11:32 Blood Pressure 117/78 12/26/18 11:32 O2 Sat by Pulse Oximetry (%) 99 12/26/18 11:32 CBC,CMP WBC 5.6 K/mm3 (4.0-10.0) 12/26/18 13:25 RBC 5.42 M/mm3 (4.00-5.60) 12/26/18 13:25 Hgb 16.6 GM/dL (11.7-16.9) 12/26/18 13:25 Hct 49.2 % (35.4-49) H 12/26/18 13:25 MCV 90.9 fl (80-96) 12/26/18 13:25 MCH 30.7 pg (25.7-33.7) 12/26/18 13:25 MCHC 33.8 g/dl (32.0-35.9) 12/26/18 13:25 RDW 13.7 % (11.9-15.9) 12/26/18 13:25 Plt Count 184 K/MM3 (134-434) 12/26/18 13:25 MPV 8.4 fl (7.5-11.1) 12/26/18 13:25 Absolute Neuts (auto) 4.2 K/mm3 (1.5-8.0) 12/26/18 13:25 Neutrophils % 74.3 % (42.8-82.8) 12/26/18 13:25 Lymphocytes % 16.1 % (8-40) 12/26/18 13:25 Monocytes % 7.6 % (3.8-10.2) 12/26/18 13:25 Eosinophils % 1.2 % (0-4.5) 12/26/18 13:25 Basophils % 0.8 % (0-2.0) 12/26/18 13:25 Nucleated RBC % 0 % (0-0) 12/26/18 13:25 Sodium 135 mmol/L (136-145) L 12/26/18 13:25 Potassium 3.9 mmol/L (3.5-5.1) 12/26/18 13:25 Chloride 105 mmol/L (98-107) 12/26/18 13:25 Carbon Dioxide 23 mmol/L (21-32) 12/26/18 13:25 Anion Gap 8 MMOL/L (8-16) 12/26/18 13:25 BUN 12 mg/dL (7-18) 12/26/18 13:25 Creatinine 0.8 mg/dL (0.55-1.3) 12/26/18 13:25 Est GFR (CKD-EPI)AfAm 128.60 12/26/18 13:25 Est GFR (CKD-EPI)NonAf 110.96 12/26/18 13:25 Random Glucose 94 mg/dL (74-106) 12/26/18 13:25 Calcium 8.7 mg/dL (8.5-10.1) 12/26/18 13:25 Total Bilirubin 2.2 mg/dL (0.2-1) H 12/26/18 13:25 AST 690 U/L (15-37) H 12/26/18 13:25 ALT 802 U/L (13-61) H 12/26/18 13:25 Alkaline Phosphatase 213 U/L (45-117) H 12/26/18 13:25 Total Protein 7.1 g/dl (6.4-8.2) 12/26/18 13:25 Albumin 3.7 g/dl (3.4-5.0) 12/26/18 13:25 Lipase 199 U/L (73-393) 12/26/18 13:25 Current Medications Generic Name Dose Route Start Last Admin Trade Name Freq PRN Reason Stop Dose Admin Sodium Chloride 1,000 mls @ 100 mls/hr 12/26/18 22:00 Normal Saline - IV ASDIR ИРИНА Morphine Sulfate 3 mg 12/26/18 21:57 Morphine Sulfate IVPUSH Q4H PRN PAIN LEVEL 4 - 6 Pantoprazole Sodium 40 mg 12/26/18 22:00 Protonix Iv IVPUSH DAILY ИРИНА Constitutional: Yes: Well Nourished Eyes: Yes: WNL, Conjunctiva Clear HENT: Yes: Atraumatic Neck: Yes: Supple Cardiovascular: Yes: Regular Rate and Rhythm Respiratory: Yes: Regular Gastrointestinal Inspection: Yes: Scars (healed laparoscopic incisions) ...Auscultate: Yes: Normoactive Bowel Sounds ...Palpate: Yes: Soft, Tenderness (mild RUQ tenderness) ...Rectal Exam: Yes: Guaiac Negative (no masses, 1+ prostate) Genitourinary: Yes: Other (no hernias, normal testicles) Labs: CBC, BMP 12/26/18 13:25 12/26/18 13:25 INR, PTT INR 1.00 (0.83-1.09) 12/26/18 17:00 Imaging - Results Cat Scan: Report Reviewed ( Final Report CT ABDOMEN & PELVIS CT WITH CONTR Show Printer-Friendly Version with Image (1 of 1) Show Printer- Friendly Version without images Patient Name: Anand Thorne : ID: [id number] Study Date: 26-Dec-2018 17:16 Zinaethan Marcus Name : ANAND THORNE DEPARTMENT OF RADIOLOGY Phys: Ellen Lara : 06/1975 Age: 43 Sex: M [facility] Acct: [id number] Loc: [address] Exam Date: 12/26/18 [place] [id number] Unit Number: [id number] EXAM#: TYPE/EXAM: RESULT: [id number] CT/ABDOMEN PELVIS CT WITH CONTR HISTORY PROVIDED: Epigastric pain. Sequential axial images were obtained from the domes of the diaphragms through the symphysis pubis following the administration of intravenous contrast material. The lung bases are clear. The liver is normal in size and texture noted that masses present. There is mild dilatation of the intrahepatic biliary tree. The common bile duct is not significantly dilated measuring 8 mm. No obvious calculus is identified within the duct. A follow-up MRCP examination may be warranted, if clinically indicated. The spleen, pancreas, adrenal glands and kidneys demonstrate no significant abnormalities. There is no evidence of intra-abdominal or retroperitoneal lymphadenopathy or fluid collections. Examination of the pelvis demonstrates no evidence of pelvic masses, fluid collections or lymphadenopathy. There is no evidence of acute bony abnormalities. IMPRESSION: 1. S/P cholecystectomy with mild dilatation of the intrahepatic biliary tree. No evidence of choledocholithiasis. MRCP follow-up recommended. 2. No additional evidence of acute pathology within the abdomen or pelvis. Please see above discussion. Reported By: Dilshad Diaz MD [address] Mary[address] Lara Technologist: Nito Cross Transcribed Date/Time: 1817 Laboratory Development Technician: Dilshad Diaz Printed Date/Time: By: Signed by: Dilshad Diaz Signed on: 26-Dec-2018 18:20) Problem List - Problems (1) Recurrent biliary colic Code(s): K80.50 - CALCULUS OF BILE DUCT W/O CHOLANGITIS OR CHOLECYST W/O OBST (2) Hx laparoscopic cholecystectomy Code(s): Z90.49 - ACQUIRED ABSENCE OF OTHER SPECIFIED PARTS OF DIGESTIVE TRACT (3) Elevated LFTs Code(s): R94.5 - ABNORMAL RESULTS OF LIVER FUNCTION STUDIES (4) Back pain Code(s): M54.9 - DORSALGIA, UNSPECIFIED Qualifiers: Back pain location: low back pain Chronicity: unspecified Back pain laterality: bilateral Sciatica presence: without sciatica Qualified Code(s) : M54.5 - Low back pain Assessment/Plan Impression: Bilary colic and dilated intraheptic ducts due to choledocholithiasis Plan: NPO Blood C/S I have discussed ERCP in detail with Anand and have informed him of the potential for such complications as perforation, hemorrhage and ERCP induced pancreatitis leading to multiorgan failure. After I answered his questions Anand signed an informed consent. I await the MRCP results
[2018-12-26] MEDS ORDERED: morphine SULFATE 4 MG/ML VIAL IVPUSH PRN (21:57)
--- NOTE | 2018-12-26 21:57 | HP ---
Admitting History and Physical - Primary Care Physician PCP: Roula Aceves - Admission History of Present Illness: 43 yo M, h/o GERD, p/w upper abdominal pain. Patient states for the past month he's had intermittent epigastric pain radiating to his back that worsened 1 week ago, now constant and worse with po. Possible excessive belching. No nausea, vomiting, change to bowel movements, melena, bright red blood per rectum , fever or chills. Reports dark urine this am but no dysuria, BRB or flank pain. States current symptoms does feel like his GERD but is taking omeprazole daily with no relief. Last time seen by GI was 5 years ago when patient also had an EGD, but does not remember results per patient. No history of peptic ulcer disease. - Past Medical History Gastrointestinal: Yes: GERD - Past Surgical History Past Surgical History: Yes: Cholecystectomy - Smoking History Smoking history: Never smoked Have you smoked in the past 12 months: No If you are a former smoker, when did you quit?: 10 yrs ago - Alcohol/Substance Use Hx Alcohol Use: No Home Medications - Allergies Allergies/Adverse Reactions: Allergies Allergy/AdvReac Type Severity Reaction Status Date / Time No Known Allergies Allergy Verified 12/26/18 11:32 - Home Medications Home Medications: Ambulatory Orders Omeprazole 20 mg PO PRN PRN 12/08/18 Physical Examination Vital Signs: Vital Signs Temperature 98.1 F 12/26/18 11:32 Pulse Rate 60 12/26/18 21:30 Respiratory Rate 18 12/26/18 21:30 Blood Pressure 111/72 12/26/18 21:30 O2 Sat by Pulse Oximetry (%) 98 12/26/18 21:30 Constitutional: Yes: No Distress HENT: Yes: Atraumatic Neck: Yes: Supple Cardiovascular: Yes: Regular Rate and Rhythm Respiratory: Yes: CTA Bilaterally Gastrointestinal: Yes: Normal Bowel Sounds Extremities: Yes: WNL Edema: No Neurological: Yes: Alert, Oriented Labs: CBC, BMP 12/26/18 13:25 12/26/18 13:25 Imaging - Results Cat Scan: Report Reviewed Problem List - Problems (1) Elevated LFTs Assessment/Plan: for ercp fu lfts Code(s): R94.5 - ABNORMAL RESULTS OF LIVER FUNCTION STUDIES (2) Epigastric pain Assessment/Plan: prn pain meds Code(s): R10.13 - EPIGASTRIC PAIN Assessment/Plan Laboratory Tests 12/26/18 12/26/18 12/26/18 13:25 13:25 17:00 WBC 5.6 RBC 5.42 Hgb 16.6 Hct 49.2 H MCV 90.9 MCH 30.7 MCHC 33.8 RDW 13.7 Plt Count 184 MPV 8.4 Absolute Neuts (auto) 4.2 Neutrophils % 74.3 Lymphocytes % 16.1 Monocytes % 7.6 Eosinophils % 1.2 Basophils % 0.8 Nucleated RBC % 0 PT with INR INR Sodium 135 L Potassium 3.9 Chloride 105 Carbon Dioxide 23 Anion Gap 8 BUN 12 Creatinine 0.8 Est GFR (CKD-EPI)AfAm 128.60 Est GFR (CKD-EPI)NonAf 110.96 Random Glucose 94 Calcium 8.7 Total Bilirubin 2.2 H AST 690 H ALT 802 H Alkaline Phosphatase 213 H Total Protein 7.1 Albumin 3.7 Lipase 199 Urine Color Dk yellow Urine Appearance Clear Urine pH 6.0 Ur Specific [place] 1.011 Urine Protein Negative Urine Glucose (UA) Negative Urine Ketones Negative Urine Blood Negative Urine Nitrite Negative Urine Bilirubin 1+ H Urine Urobilinogen 1.0 Ur Leukocyte Esterase Negative 12/26/18 17:00 WBC RBC Hgb Hct MCV MCH MCHC RDW Plt Count MPV Absolute Neuts (auto) Neutrophils % Lymphocytes % Monocytes % Eosinophils % Basophils % Nucleated RBC % PT with INR 11.80 INR 1.00 Sodium Potassium Chloride Carbon Dioxide Anion Gap BUN Creatinine Est GFR (CKD-EPI)AfAm Est GFR (CKD-EPI)NonAf Random Glucose Calcium Total Bilirubin AST ALT Alkaline Phosphatase Total Protein Albumin Lipase Urine Color Urine Appearance Urine pH Ur Specific [place] Urine Protein Urine Glucose (UA) Urine Ketones Urine Blood Urine Nitrite Urine Bilirubin Urine Urobilinogen Ur Leukocyte Esterase Active Medications Generic Name Dose Route Start Last Admin Trade Name Freq PRN Reason Stop Dose Admin Sodium Chloride 1,000 mls @ 100 mls/hr 12/26/18 22:00 Normal Saline - IV ASDIR ИРИНА Pantoprazole Sodium 40 mg 12/26/18 22:00 Protonix Iv IVPUSH DAILY ИРИНА Active Medications Generic Name Dose Route Start Last Admin Trade Name Freq PRN Reason Stop Dose Admin Lactated Ringer's 1,000 ml in 1,000 mls @ 150 mls/hr 12/28/18 12:45 12/28/18 13:33 Lactated Ringers Solution IV 150 mls/hr ASDIR ИРИНА Administration Morphine Sulfate 3 mg 12/26/18 21:57 Morphine Sulfate IVPUSH Q4H PRN PAIN LEVEL 4 - 6 Pantoprazole Sodium 40 mg 12/26/18 22:00 12/28/18 10:50 Protonix Iv IVPUSH 40 mg DAILY ИРИНА Administration Ursodiol 300 mg 12/27/18 22:00 12/28/18 10:51 Actigal - PO 300 mg BID ИРИНА Administration
[2018-12-26] MEDS ORDERED: SODIUM CHLORIDE 1,000 ML IV SCH (22:00)
[2018-12-26] MEDS ORDERED: PANTOPRAZOLE SODIUM 40 MG/100 ML BAG IVPB ONE (22:08)
[2018-12-26] MEDS: PANTOPRAZOLE SODIUM 40 MG VIAL IVPUSH SCH (22:17)
--- NOTE | 2018-12-26 22:37 | PN ---
Progress Note (short form) - Note Progress Note: GI Addendum: MRCP reveals CBD stones. I have ordered antibiotics and a preERCP Indocin suppository. Will proceed with ERCP tomorrow. Problem List - Problems (1) Recurrent biliary colic Code(s): K80.50 - CALCULUS OF BILE DUCT W/O CHOLANGITIS OR CHOLECYST W/O OBST (2) Hx laparoscopic cholecystectomy Code(s): Z90.49 - ACQUIRED ABSENCE OF OTHER SPECIFIED PARTS OF DIGESTIVE TRACT (3) Elevated LFTs Code(s): R94.5 - ABNORMAL RESULTS OF LIVER FUNCTION STUDIES (4) Back pain Code(s): M54.9 - DORSALGIA, UNSPECIFIED Qualifiers: Back pain location: low back pain Chronicity: unspecified Back pain laterality: bilateral Sciatica presence: without sciatica Qualified Code(s) : M54.5 - Low back pain
[2018-12-26] MEDS: LACTATED RINGERS SOLUTION 1,000 ML/1,000 ML INFUS.BAG IV SCH (22:39)
[2018-12-27] MEDS: LACTATED RINGERS SOLUTION 1,000 ML/1,000 ML INFUS.BAG IV SCH ×4 (01:36→20:36)
[2018-12-27] MEDS ORDERED: AMPICILLIN NA/SULBACTAM NA 1.5 GM VIAL ONE ×3 (01:37→17:04)
[2018-12-27] MEDS ORDERED: SODIUM CHLORIDE 100 ML IVPB ONE ×3 (01:38→17:04)
[2018-12-27] MEDS: AMPICILLIN NA/SULBACTAM NA 1.5 GM in SODIUM CHLORIDE 100 ML IVPB SCH ×3 (01:39→17:27)
[2018-12-27] MEDS ORDERED: AMPICILLIN NA/SULBACTAM NA 1.5 GM in SODIUM CHLORIDE 100 ML IVPB SCH ×2 (02:00→22:30)
[2018-12-27 08:07] LABS: BASO % 1.1 % (0-2.0); EOS % 4.3 % (0-4.5); HEMATOCRIT 46.3 % (35.4-49); HEMOGLOBIN 15.8 GM/dL (11.7-16.9); LYMPH % 25.3 % (8-40); MCH 31.1 pg (25.7-33.7); MCHC 34.1 g/dl (32.0-35.9); MEAN PLT VOLUME 8.4 fl (7.5-11.1); MONO % 7.9 % (3.8-10.2); NEUT % 61.4 % (42.8-82.8); PLATELET COUNT 186 K/MM3 (134-434); RBC 5.09 M/mm3 (4.00-5.60); RDW 13.9 % (11.9-15.9); WHITE BLOOD COUNT 4.5 K/mm3 (4.0-10.0)
[2018-12-27 08:22] LABS: ALBUMIN 3.4 g/dl (3.4-5.0); BILIRUBIN,DIRECT 0.5 mg/dL (0.0-0.2); BILIRUBIN,TOTAL 1.2 mg/dL (0.2-1); CALCIUM 8.6 mg/dL (8.5-10.1); TOT PROT 6.5 g/dl (6.4-8.2)
[2018-12-27] MEDS: PANTOPRAZOLE SODIUM 40 MG VIAL IVPUSH SCH (10:35)
[2018-12-27] MEDS ORDERED: INDOMETHACIN 50 MG RECTAL SUPPOSITORY PR ONE ×2 (12:00→14:10)
[2018-12-27] MEDS ORDERED: MIDAZOLAM HCL 2 MG/2 ML SINGLE DOSE VIAL ONE ×2 (13:52)
[2018-12-27] MEDS ORDERED: IOHEXOL 300 MG/ML INFUS..BTL IV ONE (14:26)
--- NOTE | 2018-12-27 15:06 | PN ---
Progress Note (short form) - Note Progress Note: GI Procedure Note: Please see ERCP report. Four stones removed and the CBD was flushed. Brisk RL ordered to prevent pancreatitis, Indocin was also given. Findings were discussed with the patient. Advance diet as tolerated. Problem List - Problems (1) Recurrent biliary colic Code(s): K80.50 - CALCULUS OF BILE DUCT W/O CHOLANGITIS OR CHOLECYST W/O OBST (2) Hx laparoscopic cholecystectomy Code(s): Z90.49 - ACQUIRED ABSENCE OF OTHER SPECIFIED PARTS OF DIGESTIVE TRACT (3) Elevated LFTs Code(s): R94.5 - ABNORMAL RESULTS OF LIVER FUNCTION STUDIES (4) Back pain Code(s): M54.9 - DORSALGIA, UNSPECIFIED Qualifiers: Back pain location: low back pain Chronicity: unspecified Back pain laterality: bilateral Sciatica presence: without sciatica Qualified Code(s) : M54.5 - Low back pain
--- NOTE | 2018-12-27 15:55 | PN ---
Progress Note, Physician - Current Medication List Current Medications: Active Medications Ampicillin Sodium/Sulbactam (Sodium 1.5 gm/ Sodium Chloride) 100 mls @ 200 mls/ hr IVPB Q8H-IV ИРИНА Metronidazole (Flagyl 500mg Premixed Ivpb -) 500 mg in 100 mls @ 100 mls/hr IVPB Q8H-IV ИРИНА Ampicillin Sodium/Sulbactam (Sodium 1.5 gm/ Sodium Chloride) 100 mls @ 200 mls/ hr IVPB Q8H-IV ИРИНА Stop: 12/27/18 18:29 Last Admin: 12/27/18 10:35 Dose: 200 mls/hr Lactated Ringer's (Lactated Ringers Solution) 1,000 ml in 1,000 mls @ 250 mls/ hr IV ASDIR [facility] Stop: 12/27/18 23:45 Lactated Ringer's (Lactated Ringers Solution) 1,000 ml in 1,000 mls @ 200 mls/ hr IV ASDIR [facility] Stop: 12/28/18 06:45 Lactated Ringer's (Lactated Ringers Solution) 1,000 ml in 1,000 mls @ 175 mls/ hr IV ASDIR [facility] Stop: 12/28/18 12:45 Lactated Ringer's (Lactated Ringers Solution) 1,000 ml in 1,000 mls @ 150 mls/ hr IV ASDIR [facility] Morphine Sulfate (Morphine Sulfate) 3 mg IVPUSH Q4H PRN PRN Reason: PAIN LEVEL 4 - 6 Pantoprazole Sodium (Protonix Iv) 40 mg IVPUSH DAILY [facility] Last Admin: 12/27/18 10:35 Dose: 40 mg Ursodiol (Actigal -) 300 mg PO BID [facility] - Objective Vital Signs: Vital Signs Temperature 97.5 F L 12/27/18 15:52 Pulse Rate 69 12/27/18 15:52 Respiratory Rate 14 12/27/18 15:52 Blood Pressure 124/82 12/27/18 15:52 O2 Sat by Pulse Oximetry (%) 98 12/27/18 15:52 Constitutional: Yes: No Distress HENT: Yes: Atraumatic Neck: Yes: Supple Cardiovascular: Yes: Regular Rate and Rhythm Respiratory: Yes: CTA Bilaterally Gastrointestinal: Yes: Normal Bowel Sounds Extremities: Yes: WNL Edema: No Peripheral Pulses WNL: Yes Neurological: Yes: Alert, Oriented Labs: CBC, BMP 12/27/18 07:16 12/27/18 07:16 INR, PTT INR 1.00 (0.83-1.09) 12/26/18 17:00 Problem List - Problems (1) Elevated LFTs Assessment/Plan: s/p ercp stones removed fu lfts Code(s): R94.5 - ABNORMAL RESULTS OF LIVER FUNCTION STUDIES (2) Epigastric pain Assessment/Plan: prn pain meds Code(s): R10.13 - EPIGASTRIC PAIN
[2018-12-27] MEDS ORDERED: PT OWN MED DRAWER 7, Y5N ONE ×2 (21:09→23:12)
[2018-12-27] MEDS: URSODIOL 300 MG CAPSULE PO SCH (22:07)
[2018-12-27] MEDS ORDERED: LACTATED RINGERS SOLUTION 1,000 ML/1,000 ML INFUS.BAG IV SCH (23:45)
[2018-12-28 04:10] LABS: HEP.C VIRUS AB 0.2 s/co ratio (0.0-0.9)
[2018-12-28] MEDS ORDERED: LACTATED RINGERS SOLUTION 1,000 ML/1,000 ML INFUS.BAG IV SCH (06:45)
[2018-12-28 08:09] LABS: BASO % 0.4 % (0-2.0); EOS % 0.3 % (0-4.5); HEMATOCRIT 41.7 % (35.4-49); HEMOGLOBIN 14.3 GM/dL (11.7-16.9); LYMPH % 15.7 % (8-40); MCH 31.3 pg (25.7-33.7); MCHC 34.3 g/dl (32.0-35.9); MEAN CELL VOLUME 91.1 fl (80-96); MEAN PLT VOLUME 8.8 fl (7.5-11.1); MONO % 5.7 % (3.8-10.2); NEUT % 77.9 % (42.8-82.8); PLATELET COUNT 184 K/MM3 (134-434); RBC 4.58 M/mm3 (4.00-5.60); RDW 13.4 % (11.9-15.9); WHITE BLOOD COUNT 7.4 K/mm3 (4.0-10.0)
[2018-12-28 08:32] LABS: BILIRUBIN,DIRECT 0.3 mg/dL (0.0-0.2); BILIRUBIN,TOTAL 0.7 mg/dL (0.2-1); CALCIUM 8.3 mg/dL (8.5-10.1); CREATININE 0.8 mg/dL (0.55-1.3); POTASSIUM 3.7 mmol/L (3.5-5.1); TOT PROT 5.7 g/dl (6.4-8.2)
[2018-12-28] MEDS ORDERED: PT OWN MED DRAWER 7, Y5N ONE (10:44)
[2018-12-28] MEDS: PANTOPRAZOLE SODIUM 40 MG VIAL IVPUSH SCH (10:50)
[2018-12-28] MEDS: URSODIOL 300 MG CAPSULE PO SCH ×2 (10:51→21:24)
--- NOTE | 2018-12-28 13:23 | PN.GI ---
GI Progress Note Subjective: No acute events S/P ERCP with sphincterotomy and multiple stone extraction States being hungry - Objective Vital Signs: Vital Signs Temperature 99.1 F 12/28/18 09:31 Pulse Rate 57 L 12/28/18 09:31 Respiratory Rate 18 12/28/18 09:31 Blood Pressure 100/62 12/28/18 09:31 O2 Sat by Pulse Oximetry (%) 100 12/28/18 09:00 Constitutional: Calm Eyes: Yes: Sclera Icterus Cardiovascular: Yes: Regular Rate and Rhythm Respiratory: Yes: CTA Bilaterally Gastrointestinal Inspection: No: Distention ...Auscultate: Yes: Normoactive Bowel Sounds ...Palpate: Yes: Soft. No: Tenderness Edema: No (No LE edema) Labs: CBC, BMP 12/28/18 06:00 12/28/18 06:00 INR, PTT INR 1.00 (0.83-1.09) 12/26/18 17:00 Problem List - Problems (1) Choledocholithiasis Assessment/Plan: Clinically improived and LFTs improving Advanced diet D/C Abx If tolerates diet and LFTs continue to improve, D/C Home in AM On Actigal. Outpatient follow-up in 2 weeks Code(s): K80.50 - CALCULUS OF BILE DUCT W/O CHOLANGITIS OR CHOLECYST W/O OBST
[2018-12-28] MEDS: LACTATED RINGERS SOLUTION 1,000 ML/1,000 ML INFUS.BAG IV SCH (13:33)
--- NOTE | 2018-12-28 17:53 | PN ---
Progress Note, Physician - Current Medication List Current Medications: Active Medications Lactated Ringer's (Lactated Ringers Solution) 1,000 ml in 1,000 mls @ 150 mls/ hr IV ASDIR [facility] Last Admin: 12/28/18 13:33 Dose: 150 mls/hr Morphine Sulfate (Morphine Sulfate) 3 mg IVPUSH Q4H PRN PRN Reason: PAIN LEVEL 4 - 6 Pantoprazole Sodium (Protonix Iv) 40 mg IVPUSH DAILY [facility] Last Admin: 12/28/18 10:50 Dose: 40 mg Ursodiol (Actigal -) 300 mg PO BID [facility] Last Admin: 12/28/18 10:51 Dose: 300 mg - Objective Vital Signs: Vital Signs Temperature 98.4 F 12/28/18 14:39 Pulse Rate 51 L 12/28/18 14:39 Respiratory Rate 18 12/28/18 14:39 Blood Pressure 107/68 12/28/18 14:39 O2 Sat by Pulse Oximetry (%) 100 12/28/18 09:00 Constitutional: Yes: No Distress HENT: Yes: Atraumatic Neck: Yes: Supple Cardiovascular: Yes: Regular Rate and Rhythm Respiratory: Yes: CTA Bilaterally Gastrointestinal: Yes: Normal Bowel Sounds Extremities: Yes: WNL Edema: No Peripheral Pulses WNL: Yes Neurological: Yes: Alert, Oriented Labs: CBC, BMP 12/28/18 06:00 12/28/18 06:00 INR, PTT INR 1.00 (0.83-1.09) 12/26/18 17:00 Problem List - Problems (1) Elevated LFTs Assessment/Plan: s/p ercp diet is advanced by gi fu lfts dc in am if stable Code(s): R94.5 - ABNORMAL RESULTS OF LIVER FUNCTION STUDIES (2) Epigastric pain Assessment/Plan: prn pain meds Code(s): R10.13 - EPIGASTRIC PAIN
[2018-12-29 07:26] LABS: ALBUMIN 3.2 g/dl (3.4-5.0); BILIRUBIN,TOTAL 0.6 mg/dL (0.2-1); CALCIUM 8.2 mg/dL (8.5-10.1); CREATININE 0.9 mg/dL (0.55-1.3); POTASSIUM 3.5 mmol/L (3.5-5.1); TOT PROT 5.9 g/dl (6.4-8.2)
[2018-12-29] MEDS ORDERED: PT OWN MED DRAWER 7, Y5N ONE (11:14)
[2018-12-29] MEDS: URSODIOL 300 MG CAPSULE PO SCH (11:17)
[2018-12-29] MEDS: PANTOPRAZOLE SODIUM 40 MG VIAL IVPUSH SCH (11:18)
--- NOTE | 2018-12-29 15:51 | DS ---
Physical Examination Vital Signs: Vital Signs Temperature 98.5 F 12/29/18 14:57 Pulse Rate 68 12/29/18 14:57 Respiratory Rate 18 12/29/18 14:57 Blood Pressure 106/60 12/29/18 14:57 O2 Sat by Pulse Oximetry (%) 99 12/29/18 09:00 Constitutional: Yes: No Distress HENT: Yes: Atraumatic Neck: Yes: Supple Cardiovascular: Yes: Regular Rate and Rhythm Respiratory: Yes: CTA Bilaterally Gastrointestinal: Yes: Normal Bowel Sounds Extremities: Yes: WNL Neurological: Yes: Alert, Oriented Labs: CBC, BMP 12/28/18 06:00 12/29/18 06:00 Discharge Summary Reason For Visit: ELEVATED LIKVER FUNCTION TESTS, EPIGASTRIC PAIN Current Active Problems Choledocholithiasis (Acute) Elevated LFTs (Acute) Epigastric pain (Acute) Hx laparoscopic cholecystectomy (Acute) Recurrent biliary colic (Acute) - Instructions Diet, Activity, Other Instructions: fu gi 2-3 days Referrals: Malachi Garcia DO [Staff Physician] - - Home Medications Comprehensive Discharge Medication List: Ambulatory Orders Omeprazole 20 mg PO PRN PRN 12/08/18 continue actigal for couple of weeks as per gi
[2018-12-29] MEDS: LACTATED RINGERS SOLUTION 1,000 ML/1,000 ML INFUS.BAG IV SCH (16:48)
--- NOTE | 2018-12-29 16:58 | PN.GI ---
GI Progress Note Subjective: No acute events Spoke with Dr. Waters Re: Actigal as he had ordered it. He felt that there was thick sludge in the CBD noted as he was sweeping the duct and wanted him on Actigal for at least a couple of weeks. - Objective Vital Signs: Vital Signs Temperature 98.5 F 12/29/18 14:57 Pulse Rate 68 12/29/18 14:57 Respiratory Rate 18 12/29/18 14:57 Blood Pressure 106/60 12/29/18 14:57 O2 Sat by Pulse Oximetry (%) 99 12/29/18 09:00 Constitutional: Calm Eyes: No: Sclera Icterus Cardiovascular: Yes: Regular Rate and Rhythm Respiratory: Yes: CTA Bilaterally Gastrointestinal Inspection: No: Distention ...Auscultate: Yes: Normoactive Bowel Sounds ...Palpate: No: Tenderness ...Percussion: No: Tympanitic Edema: No Labs: CBC, BMP 12/28/18 06:00 12/29/18 06:00 INR, PTT INR 1.00 (0.83-1.09) 12/26/18 17:00 Problem List - Problems (1) Choledocholithiasis Assessment/Plan: Clinically doing well and LFTs improved Actigal 300mg PO BID for [address] Waters Follow-up in office in 1-2 weeks. Discussed with patient and his nurse Patient should follow-up with PMD as well Code(s): K80.50 - CALCULUS OF BILE DUCT W/O CHOLANGITIS OR CHOLECYST W/O OBST
[2018-12-29 17:39] VITALS: BP 107/64; PULSE 63; TEMP 98.2
== END 2018-12-29 17:51 | disposition home or self-care (01) ==
LOC: JER 10:54 → JERBED 20:56 → J7W 12-27 01:32 → OBSVTOIN 12-27 11:27
PROVIDERS: ADMIT Internal Medicine; ATTEND Internal Medicine
PROC: 0FC98ZZ Extirpation of Matter from Common Bile Duct, Via Natural or Artificial Opening Endoscopic (ICD-10-PCS; principal; 2018-12-27 13:15)
DX: K80.50 Calculus of bile duct without cholangitis or cholecystitis without obstruction (principal); R94.5 Abnormal results of liver function studies; K21.9 Gastro-esophageal reflux disease without esophagitis; M54.9 Dorsalgia, unspecified
CPT/HCPCS: 36415; 74177-TC; 74181-TC; 76705-TC; 80053; 80074; 81003; 82150; 82248; 83690; 85025; 85610; 86140; 87040; 99282-25; G0378; J7030

== ENCOUNTER 2018-12-30 10:06 | Inpatient (IN) | payer OTHER ==
[2018-12-30] MEDS ORDERED: LACTATED RINGERS SOLUTION 1,000 ML IV STA (10:38)
--- NOTE | 2018-12-30 10:40 | PDOC ---
History of Present Illness - General Chief Complaint: Pain Stated Complaint: ABD PAIN discharged yesterday Time Seen by Provider: 12/30/18 10:30 History Source: Patient - History of Present Illness Initial Comments: 12/30/18 10:41 The patient is 43 year old male with a PMH GERD and ERCP who presents to the ED c/o abdominal pain. Patient states the pain started around 10 p.m. yesterday evening and is constant, sharp and radiates to his back without any identifiable triggering or relieving factors. Last meal was cereal, milk and blueberries yesterday around 8 p.m. Discharged from our facility yesterday afternoon following and ERCP. At time of discharge patient states he was pain free. NKDA Surgical: cholecystectomy, ERCP Social: former smoker (quit 10 years previous), social alcohol, denies other toxic habits. PMD: As per EMR, patient evaluated in our ED on 12/26/18 for epigastric abdominal pain w/elevated transaminases and bilirubin of 2.2. S/p ERCP on 12/27 with 4 stones removed. Patient discharged on 12/29 down trending post procedures LFTs and bilirubin. Discharged on Ursodial. Past History - Past Medical History Allergies/Adverse Reactions: Allergies Allergy/AdvReac Type Severity Reaction Status Date / Time No Known Allergies Allergy Verified 12/30/18 10:11 Home Medications: Ambulatory Orders Omeprazole 20 mg PO PRN PRN 12/08/18 Ursodiol [Actigal -] 300 mg PO BID #60 capsule 12/29/18 COPD: No GI Disorders: Yes (GERD) - Surgical History Cholecystectomy: Yes - Immunization History Immunization Up to Date: No - Suicide/Smoking/Psychosocial Hx Smoking History: Never smoked Have you smoked in the past 12 months: No If you are a former smoker, when did you quit?: 10 yrs ago Information on smoking cessation initiated: No Hx Alcohol Use: No Drug/Substance Use Hx: No Substance Use Type: None Hx Substance Use Treatment: No Review of Systems - Review of Systems Constitutional: No: Chills, Fever HEENTM: No: Blurred Vision, Recent change in vision Respiratory: No: Shortness of Breath, Stridor Cardiac (ROS): No: Chest Pain, Lightheadedness, Palpitations, Syncope ABD/GI: No: Constipated, Diarrhea, Nausea, Vomiting : Yes: Frequency, Urgency. No: Burning, Dysuria *Physical Exam - Vital Signs Last Vital Signs Temp Pulse Resp BP Pulse Ox 101.5 F H 108 H 18 106/80 100 12/30/18 10:09 12/30/18 10:09 12/30/18 10:09 12/30/18 10:09 12/30/18 10:09 - Physical Exam Comments: 12/30/18 10:58 Triage VS reviewed Awake, alert, non-toxic but uncomfortable Abdomen: soft, (+) bowel sounds, no TTP in upper quadrants/epigastrium, mild suprapubic TTP, well healed cholecystectomy scar CV: S1, S2, no M/R/G Respiratory: Lungs CLTA B/L Extremity: 2+ DP pulses, no edema ED Treatment Course - LABORATORY CBC & Chemistry Diagram: 12/30/18 10:58 12/30/18 10:58 Medical Decision Making - Medical Decision Making 12/30/18 10:48 Sam Hughes is a 43 yo male with epigastric pain that radiates to his back. S /p ERCP at our facility two days previous and discharged home yesterday without any active medical complaints. Febrile (101.5) and tachycardic (HR 108). Mild suprapubic TTP on PE with report of increased urgency/frequency. Frontal diagnosis: post ERCP pancreatitis, viral gastritis, PLAN: Fever work-up including CXR, Blood cultures, UA/UCx, CBC/CMP. Tylenol and IV hydration. Reassess. 12/30/18 11:50 Patient reassessed at bedside - abdominal pain improved s/p Tylenol and IV hydration, continues to c/o ELIZABETH c/w previous headaches (throbbing, focal). No leukocytosis LFT's continue to down trend, mildly hyokalemic (3.4) - PO replacement Will give Reglan, Toradol 12/30/18 11:[address] Waters's office - in hospital, will overhead page 12/30/18 12:18 UA clean 12/30/18 12:43 Repeat VS: HR 86, SpO2 99% on RA, BP 108/69 12/30/18 14:42 Case d/w Dr. Waters, patient requires MRCP 12/30/18 14:58 Patient reassessed @ bedside, repeat belly exam benign Patient ate sandwich - cannot do MRCP today 12/30/18 15:59 Case d/w Dr. Waters - will admit patient for MRCP on Wednesday pending ERCP Patient counseled on plan of care. Broad spectrum antibiotic coverage - Metronizadole, Cefazolin 12/30/18 17:27 Call placed to MRI, patient won't receive ERCP until 8:30 - 9 p.m. - will admit Case d/w CAROL Sy Patient admitted to Dr. Vieira *DC/Admit/Observation/Transfer Diagnosis at time of Disposition: Cholangitis - Discharge Dispostion Condition at time of disposition: Fair Decision to Admit order: Yes - Referrals - Patient Instructions - Post Discharge Activity
[2018-12-30] MEDS ORDERED: ACETAMINOPHEN 1000 MG/100 ML VIAL (NON FORMULARY) IVPB ONE (10:43)
--- NOTE | 2018-12-30 11:08 | PDOC ---
Attending Attestation - Resident Resident Name: MohsenElana - ED Attending Attestation I have performed the following: I have examined & evaluated the patient, The case was reviewed & discussed with the resident, I agree w/resident's findings & plan - HPI HPI: 12/30/18 11:09 43-year-old male with history of GERD and retained biliary stones, cholecystectomy presenting with fever and epigastric pain radiating to the back since yesterday. He was recently admitted from 12/26-12/29, discharged yesterday after admission for retained biliary stones status post ERCP, and started on ursodiol. Hospitalization and course was uncomplicated, he has been eating and drinking up until yesterday. Currently he is complaining of myalgias, leg pains, headache and fever did not take any medications earlier today. - Physicial Exam PE: 12/30/18 11:10 Agree with the resident's HPI and PE as documented in the electronic medical record. NAD, well appearing, PERRL, EOMI, MMM, nl conjunctiva, anicteric; neck supple. lungs clear, +tachy, abdomen soft mild epigastric TTP, no rebound or guarding. no CVAT. neg ashley's. BUTLER x4, no focal neuro deficits. No peripheral edema. normal color for ethnicity, WWP. very warm to touch - Medical Decision Making 12/30/18 11:10 See HPI for details. Prior notes reviewed, including admissions, discharges and consultations. Vital signs reviewed, fever and tachycardia DDx abdominal pain: Renal colic, biliary colic, retained biliary stones, metabolic/electrolyte derangements. GERD, PUD, esophageal spasm, post ERCP pancreatitis, hepatitis, constipation, colitis, gastroenteritis, UTI, pyelonephritis, ileus, SBO, hernia, appendicitis, diverticulitis laboratory results and imaging reviewed, basic labs and lytes wnl, notable for improving transaminitis (much higher previously), lipase normal. lactic normal UA_clear, trace ketones. no bili, no s/s infection CXR_no acute chest pathology EKG sinus tachycardia at 102 bpm, no interval abnormalities, narrow QRS, ST and T wave segments and morphology normal. Nonspecific T wave abnormalities ED course: IVF and tylenol for fever/aches, reassess - GI cs with service given his recent ERCP. - GI cs, MRCP, infection vs persistently retained stones/sludge - IV abx, VS improved. pain controlled, benign abdominal exam, no peritoneal findings. admit to medical service, s/o TRACK FITTER, Dr Waters cs initiated. 12/30/18 11:49 12/30/18 18:30 12/30/18 18:32 Heart Score/ECG Review #1 ECG reviewed & interpreted by me at: 10:45 General ECG Interpretation: Sinus Rhythm, Normal Intervals, No acute ischemic changes 12/30/18 11:12 EKG sinus tachycardia at 102 bpm, no interval abnormalities, narrow QRS, ST and T wave segments and morphology normal. Nonspecific T wave abnormalities
[2018-12-30] MEDS ORDERED: ACETAMINOPHEN INJECTION 100 ML IVPB ONE (11:11)
[2018-12-30 11:12] LABS: BASO % 0.4 % (0-2.0); EOS % 0.1 % (0-4.5); HEMATOCRIT 49.2 % (35.4-49); HEMOGLOBIN 16.7 GM/dL (11.7-16.9); LYMPH % 5.7 % (8-40); MCH 30.8 pg (25.7-33.7); MCHC 33.8 g/dl (32.0-35.9); MEAN CELL VOLUME 91.2 fl (80-96); MEAN PLT VOLUME 8.4 fl (7.5-11.1); MONO % 5.9 % (3.8-10.2); NEUT % 87.9 % (42.8-82.8); PLATELET COUNT 168 K/MM3 (134-434); RDW 13.4 % (11.9-15.9); WHITE BLOOD COUNT 8.8 K/mm3 (4.0-10.0)
[2018-12-30 11:46] LABS: BILIRUBIN,DIRECT 0.3 mg/dL (0.0-0.2); MAGNESIUM 1.6 mg/dL (1.8-2.4)
[2018-12-30 11:48] LABS: BILIRUBIN,TOTAL 0.9 mg/dL (0.2-1); CALCIUM 8.8 mg/dL (8.5-10.1); POTASSIUM 3.4 mmol/L (3.5-5.1); TOT PROT 7.5 g/dl (6.4-8.2)
[2018-12-30] MEDS ORDERED: POTASSIUM CHLORIDE TABS 20 MEQ TABLET.ER (FP) PO ONE ×2 (11:51→12:22)
[2018-12-30] MEDS ORDERED: KETOROLAC TROMETHAMINE 30 MG/1 ML VIAL IVPUSH ONE (11:51)
[2018-12-30] MEDS ORDERED: METOCLOPRAMIDE HCL INJECTION 10 MG/2 ML VIAL IVPUSH ONE (11:51)
[2018-12-30 12:12] LABS: PH,URINE 7.5 (5.0-8.0); URINE APPEARANCE CLEAR; URINE BILIRUBIN NEGATIVE (NEGATIVE); URINE COLOR YELLOW; URINE GLUCOSE (UA) NEGATIVE (NEGATIVE); URINE KETONE TRACE (NEGATIVE); URINE LEUK ESTERASE NEGATIVE (NEGATIVE); URINE NITRITE NEGATIVE (NEGATIVE); URINE PROTEIN NEGATIVE (NEGATIVE)
[2018-12-30] MEDS ORDERED: METOCLOPRAMIDE HCL INJECTION 10 MG/2 ML VIAL ONE (12:22)
[2018-12-30] MEDS ORDERED: KETOROLAC TROMETHAMINE 30 MG/1 ML VIAL ONE (12:22)
[2018-12-30] MEDS ORDERED: MAGNESIUM SULF 50% (8.12 MEQ/2 ML-1 GM VIAL) IVPB ONE (12:36)
[2018-12-30] MEDS ORDERED: MAGNESIUM SULF 50% (8.12 MEQ/2 ML-1 GM VIAL) ONE (12:59)
--- NOTE | 2018-12-30 13:26 | EKG ---
Test Reason : Blood Pressure : / mmHG Vent. Rate : 102 BPM Atrial Rate : 102 BPM P-R Int : 150 ms QRS Dur : 090 ms QT Int : 320 ms P-R-T Axes : 051 107 052 degrees QTc Int : 417 ms SINUS TACHYCARDIA RIGHTWARD AXIS NONSPECIFIC ST ABNORMALITY ABNORMAL ECG Confirmed by LUCAS LEE MD ([id number]) on 12/30/2018 1:25:32 PM Referred By: Confirmed By:LUCAS LEE MD
--- NOTE | 2018-12-30 16:42 | CON.GI ---
Consult Consult Specialty:: Gastroenterology ( covering the [facility] GI service) Referred by:: Dr. Connolly Reason for Consultation:: Abdominal pain and fever - History of Present Illness Chief Complaint: FLOYD colicky pain radiating into the back intermittently History of Present Illness: 43M presented with biliary colic and jaundice for which he underwent an ERCP on 12/27 with me which extracted 4 stones. His bile was very thick and there was copious biliary sediment that I lavaged with saline and for which I started Actigal. He was pain free on discharge yesterday and blood cultures were negative. He developed biliary colic after dinner last light and again today prompting him to come to the ER where a fever of 101 was recorded. His LFTs are trending to normalization from their original aside from a mild alkaline phosphatase rise. His pain has subsided. He feels well enough to have eaten a sandwich a half hour ago. 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 Place of : Other ([facility]) History of Recent Travel: No Home Medications - Allergies Allergies/Adverse Reactions: Allergies Allergy/AdvReac Type Severity Reaction Status Date / Time No Known Allergies Allergy Verified 12/30/18 10:11 - Home Medications Home Medications: Ambulatory Orders Omeprazole 20 mg PO PRN PRN 12/08/18 Ursodiol [Actigal -] 300 mg PO BID #60 capsule 12/29/18 Family Disease History - Family Disease History Family Disease History: Other: Father (healthy), Mother (healthy) Review of Systems - Review of Systems Constitutional: reports: Fever Eyes: reports: No Symptoms HENT: reports: No Symptoms Neck: reports: No Symptoms Cardiovascular: reports: No Symptoms Respiratory: reports: No Symptoms Gastrointestinal: reports: Abdominal Pain, Nausea Physical Exam-GI Vital Signs: Vital Signs Temperature 98.6 F 12/30/18 13:07 Pulse Rate 86 12/30/18 13:07 Respiratory Rate 19 12/30/18 13:07 Blood Pressure 108/69 12/30/18 13:07 O2 Sat by Pulse Oximetry (%) 100 12/30/18 13:07 CBC,CMP WBC 8.8 K/mm3 (4.0-10.0) 12/30/18 10:58 RBC 5.40 M/mm3 (4.00-5.60) 12/30/18 10:58 Hgb 16.7 GM/dL (11.7-16.9) 12/30/18 10:58 Hct 49.2 % (35.4-49) H D 12/30/18 10:58 MCV 91.2 fl (80-96) 12/30/18 10:58 MCH 30.8 pg (25.7-33.7) 12/30/18 10:58 MCHC 33.8 g/dl (32.0-35.9) 12/30/18 10:58 RDW 13.4 % (11.9-15.9) 12/30/18 10:58 Plt Count 168 K/MM3 (134-434) 12/30/18 10:58 MPV 8.4 fl (7.5-11.1) 12/30/18 10:58 Absolute Neuts (auto) 7.8 K/mm3 (1.5-8.0) 12/30/18 10:58 Neutrophils % 87.9 % (42.8-82.8) H 12/30/18 10:58 Lymphocytes % 5.7 % (8-40) L D 12/30/18 10:58 Monocytes % 5.9 % (3.8-10.2) 12/30/18 10:58 Eosinophils % 0.1 % (0-4.5) 12/30/18 10:58 Basophils % 0.4 % (0-2.0) 12/30/18 10:58 Nucleated RBC % 0 % (0-0) 12/30/18 10:58 Sodium 135 mmol/L (136-145) L 12/30/18 10:58 Potassium 3.4 mmol/L (3.5-5.1) L 12/30/18 10:58 Chloride 100 mmol/L (98-107) 12/30/18 10:58 Carbon Dioxide 28 mmol/L (21-32) 12/30/18 10:58 Anion Gap 7 MMOL/L (8-16) L 12/30/18 10:58 BUN 10 mg/dL (7-18) 12/30/18 10:58 Creatinine 1.0 mg/dL (0.55-1.3) 12/30/18 10:58 Est GFR (CKD-EPI)AfAm 107.87 12/30/18 10:58 Est GFR (CKD-EPI)NonAf 93.07 12/30/18 10:58 Random Glucose 105 mg/dL (74-106) 12/30/18 10:58 Lactic Acid 0.9 mmol/L (0.4-2.0) 12/30/18 10:58 Calcium 8.8 mg/dL (8.5-10.1) 12/30/18 10:58 Phosphorus 3.0 mg/dL (2.5-4.9) 12/30/18 10:58 Magnesium 1.6 mg/dL (1.8-2.4) L 12/30/18 10:58 Total Bilirubin 0.9 mg/dL (0.2-1) 12/30/18 10:58 Direct Bilirubin 0.3 mg/dL (0.0-0.2) H 12/30/18 10:58 AST 48 U/L (15-37) H 12/30/18 10:58 ALT 266 U/L (13-61) H 12/30/18 10:58 Alkaline Phosphatase 172 U/L (45-117) H 12/30/18 10:58 Total Protein 7.5 g/dl (6.4-8.2) 12/30/18 10:58 Albumin 4.0 g/dl (3.4-5.0) 12/30/18 10:58 Lipase 145 U/L (73-393) 12/30/18 10:58 Constitutional: Yes: Calm Eyes: Yes: Conjunctiva Clear HENT: Yes: Atraumatic Neck: Yes: Trachea Midline Cardiovascular: Yes: Regular Rate and Rhythm Respiratory: Yes: CTA Bilaterally Gastrointestinal Inspection: Yes: Scars (healed laparoscopic incisions) ...Auscultate: Yes: Normoactive Bowel Sounds ...Palpate: Yes: Soft, Other (nontender) ...Rectal Exam: Yes: Deferred (done 12/26) Labs: CBC, BMP 12/30/18 10:58 12/30/18 10:58 Problem List - Problems (1) History of endoscopic retrograde cholangiopancreatography Code(s): Z98.890 - OTHER SPECIFIED POSTPROCEDURAL STATES (2) Fever Code(s): R50.9 - FEVER, UNSPECIFIED (3) Choledocholithiasis Code(s): K80.50 - CALCULUS OF BILE DUCT W/O CHOLANGITIS OR CHOLECYST W/O OBST (4) Hx laparoscopic cholecystectomy Code(s): Z90.49 - ACQUIRED ABSENCE OF OTHER SPECIFIED PARTS OF DIGESTIVE TRACT (5) Recurrent biliary colic Code(s): K80.50 - CALCULUS OF BILE DUCT W/O CHOLANGITIS OR CHOLECYST W/O OBST Assessment/Plan Impression Biliary colic due to residual stone, stone fragments or thick sludge Plan: I had prepared to do an immediate ERCP but given that the patient has eaten this option is deferred Will pursue MRCP Blood cultures were done so I will start antibiotics Dr. Erica Christensen will be covering this weekend Continue Actigal
[2018-12-30] MEDS ORDERED: CEFAZOLIN 1 GM/D5W 1 GM/50 ML BAG ONE (19:10)
[2018-12-30] MEDS: ceFAZolin 2 GRAM PREMIX BAG IVPB SCH (19:17)
--- NOTE | 2018-12-30 19:51 | HP ---
Admitting History and Physical - Primary Care Physician PCP: None - Admission Chief Complaint: Epigastric Pain, Nausea History of Present Illness: This is a 43 y/o man with a past medical history of GERD, s/p Cholecystectomy, recent admission 12/27-12/29 for Epigastric Pain, Transaminitis. Who presents to the ED with epigastric pain and nausea x last night. Patient reports having severe epigastric pain burning and stabbing in sensation after eating. Patient reports having subjective fever and chills. Patient reports taking his medications as prescribed without relief. Patient denies cough, SOB, dizziness, CP, palpitations, diarrhea, melena, hematochezia, hematuria, dysuria. 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 History of Recent Travel: No Home Medications - Allergies Allergies/Adverse Reactions: Allergies Allergy/AdvReac Type Severity Reaction Status Date / Time No Known Allergies Allergy Verified 12/30/18 10:11 - Home Medications Home Medications: Ambulatory Orders Omeprazole 20 mg PO PRN PRN 12/08/18 Ursodiol [Actigal -] 300 mg PO BID #60 capsule 12/29/18 Family Disease History - Family Disease History Family Disease History: Other: Father (healthy), Mother (healthy) Review of Systems - Review of Systems Constitutional: reports: Chills, Fever Eyes: reports: No Symptoms HENT: reports: No Symptoms Neck: reports: No Symptoms Cardiovascular: reports: No Symptoms Respiratory: reports: No Symptoms Gastrointestinal: reports: Abdominal Pain, Nausea Genitourinary: reports: No Symptoms Breasts: reports: No Symptoms Reported Musculoskeletal: reports: No Symptoms Integumentary: reports: No Symptoms Neurological: reports: No Symptoms Endocrine: reports: No Symptoms Hematology/Lymphatic: reports: No Symptoms Psychiatric: reports: No Symptoms Pain Intensity: 4 Physical Examination Vital Signs: Vital Signs Temperature 98.6 F 12/30/18 13:07 Pulse Rate 86 12/30/18 13:07 Respiratory Rate 19 12/30/18 13:07 Blood Pressure 108/69 12/30/18 13:07 O2 Sat by Pulse Oximetry (%) 100 12/30/18 13:07 Constitutional: Yes: No Distress, Calm Eyes: Yes: WNL, Conjunctiva Clear, EOM Intact, PERRL HENT: Yes: WNL, Atraumatic, Normocephalic Neck: Yes: WNL, Supple, Trachea Midline Cardiovascular: Yes: WNL, Regular Rate and Rhythm, S1, S2 Respiratory: Yes: WNL, Regular, CTA Bilaterally Gastrointestinal: Yes: Soft, Hypoactive Bowel Sounds. No: Tenderness, Tenderness, Epigastrium Renal/: Yes: WNL Breast(s): Yes: WNL Musculoskeletal: Yes: WNL Extremities: Yes: WNL Edema: No Peripheral Pulses WNL: Yes Neurological: Yes: WNL, Alert, Oriented, Cran Nerves II-XII Intact Psychiatric: Yes: WNL, Alert, Oriented Labs: CBC, BMP 12/30/18 10:58 12/30/18 10:58 Laboratory Results - last 24 hr 12/30/18 12/30/18 12/30/18 10:58 10:58 10:58 WBC 8.8 RBC 5.40 Hgb 16.7 Hct 49.2 H D MCV 91.2 MCH 30.8 MCHC 33.8 RDW 13.4 Plt Count 168 MPV 8.4 Absolute Neuts (auto) 7.8 Neutrophils % 87.9 H Lymphocytes % 5.7 L D Monocytes % 5.9 Eosinophils % 0.1 Basophils % 0.4 Nucleated RBC % 0 PT with INR INR Sodium 135 L Potassium 3.4 L Chloride 100 Carbon Dioxide 28 Anion Gap 7 L BUN 10 Creatinine 1.0 Est GFR (CKD-EPI)AfAm 107.87 Est GFR (CKD-EPI)NonAf 93.07 Random Glucose 105 Lactic Acid Calcium 8.8 Phosphorus 3.0 Magnesium 1.6 L Total Bilirubin 0.9 Direct Bilirubin 0.3 H AST 48 H ALT 266 H Alkaline Phosphatase 172 H Total Protein 7.5 Albumin 4.0 Lipase 145 Urine Color Urine Appearance Urine pH Ur Specific [place] Urine Protein Urine Glucose (UA) Urine Ketones Urine Blood Urine Nitrite Urine Bilirubin Urine Urobilinogen Ur Leukocyte Esterase 05/24/19 05/24/19 05/24/19 10:58 12:00 19:50 WBC RBC Hgb Hct MCV MCH MCHC RDW Plt Count MPV Absolute Neuts (auto) Neutrophils % Lymphocytes % Monocytes % Eosinophils % Basophils % Nucleated RBC % PT with INR INR Sodium Potassium Chloride Carbon Dioxide Anion Gap BUN Creatinine Est GFR (CKD-EPI)AfAm Est GFR (CKD-EPI)NonAf Random Glucose Lactic Acid 0.9 Calcium Phosphorus Magnesium Total Bilirubin Direct Bilirubin AST ALT Alkaline Phosphatase Total Protein Albumin Lipase 158 Urine Color Yellow Urine Appearance Clear Urine pH 7.5 D Ur Specific [place] 1.021 Urine Protein Negative Urine Glucose (UA) Negative Urine Ketones Trace H Urine Blood Negative Urine Nitrite Negative Urine Bilirubin Negative Urine Urobilinogen 1.0 Ur Leukocyte Esterase Negative 12/30/18 20:08 WBC RBC Hgb Hct MCV MCH MCHC RDW Plt Count MPV Absolute Neuts (auto) Neutrophils % Lymphocytes % Monocytes % Eosinophils % Basophils % Nucleated RBC % PT with INR 14.00 H INR 1.18 H Sodium Potassium Chloride Carbon Dioxide Anion Gap BUN Creatinine Est GFR (CKD-EPI)AfAm Est GFR (CKD-EPI)NonAf Random Glucose Lactic Acid Calcium Phosphorus Magnesium Total Bilirubin Direct Bilirubin AST ALT Alkaline Phosphatase Total Protein Albumin Lipase Urine Color Urine Appearance Urine pH Ur Specific [place] Urine Protein Urine Glucose (UA) Urine Ketones Urine Blood Urine Nitrite Urine Bilirubin Urine Urobilinogen Ur Leukocyte Esterase Intake & Output 12/28/18 12/29/18 12/30/18 12/31/18 23:59 23:59 23:59 23:59 Weight 101.06 kg Current Medications Generic Name Dose Route Start Last Admin Trade Name Freq PRN Reason Stop Dose Admin Cefazolin Sodium/Dextrose 2 gm 12/30/18 18:00 12/31/18 01:56 Ancef 2 Gm Premixed Ivpb - IVPB 2 gm Q8H-IV ИРИНА Administration Metronidazole 500 mg in 100 mls @ 100 mls/hr 12/30/18 18:00 12/31/18 01:54 Flagyl 500mg Premixed Ivpb - IVPB 100 mls/hr Q8H-IV ИРИНА Administration Morphine Sulfate 1 mg 12/30/18 22:46 Morphine Sulfate IM Q6H PRN PAIN LEVEL 6-10 Ursodiol 300 mg 12/30/18 22:00 12/30/18 22:51 Actigal - PO 300 mg BID ИРИНА Administration Imaging - Results Chest X-ray: Report Reviewed, Image Reviewed MRI: Image Reviewed EKG: Image Reviewed Problem List - Problems (1) Recurrent biliary colic Assessment/Plan: Likely secondary to residual stone vs sludge GI following MRCP done- awaiting report Started on Ancef, Flagyl, will continue Continue Actigal Monitor vitals CBC, BMP, CRP in am Code(s): K80.50 - CALCULUS OF BILE DUCT W/O CHOLANGITIS OR CHOLECYST W/O OBST (2) Epigastric pain Assessment/Plan: Likely secondary to biliary colic Zofran prn Clear Liquid Diet Monitor CBC, BMP Monitor vitals Code(s): R10.13 - EPIGASTRIC PAIN (3) Elevated LFTs Assessment/Plan: Likely secondary to CBD Avoid Hepatotoxic Drugs Monitor LFTs Code(s): R94.5 - ABNORMAL RESULTS OF LIVER FUNCTION STUDIES (4) Hypomagnesemia Assessment/Plan: Likely secondary to PPI vs Vomiting Repleted in ED Will continue to monitor Code(s): E83.42 - HYPOMAGNESEMIA (5) Hypokalemia Assessment/Plan: Likely secondary to Hypovalemia Repleted in ED Monitor BMP Code(s): E87.6 - HYPOKALEMIA Assessment/Plan This is a 43 y/o man with a PMHx of GERD placed in Observation for Epigastric Pain for further evaluation of their emergent condition. Plan: See Problem List FEN Replete lytes prn Clear Liquid Diet DVT PPx SCDs Dispo: Observation Visit type - Emergency Visit Emergency Visit: Yes ED Registration Date: 12/30/18 Care time: The patient presented to the Emergency Department on the above date and was hospitalized for further evaluation of their emergent condition. - New Patient This patient is new to me today: Yes Date on this admission: 12/30/18 - Critical Care Critical Care patient: No
[2018-12-30] MEDS ORDERED: morphine CARPU-JECT 2 MG/1 ML DISP.SYRIN IM PRN (21:22)
[2018-12-30 22:22] LABS: INR 1.18 (0.83-1.09)
[2018-12-30] MEDS ORDERED: MORPHINE SULFATE 2 MG/ML VIAL IM PRN (22:46)
[2018-12-30] MEDS: URSODIOL 300 MG CAPSULE PO SCH (22:51)
[2018-12-31] MEDS: ceFAZolin 2 GRAM PREMIX BAG IVPB SCH ×3 (01:56→17:23)
[2018-12-31] MEDS ORDERED: ONDANSETRON 4 MG/2 ML VIAL IVPUSH PRN (05:10)
[2018-12-31 08:18] LABS: ALBUMIN 3.2 g/dl (3.4-5.0); BILIRUBIN,DIRECT 0.3 mg/dL (0.0-0.2); BILIRUBIN,TOTAL 0.6 mg/dL (0.2-1); POTASSIUM 3.8 mmol/L (3.5-5.1); TOT PROT 6.1 g/dl (6.4-8.2)
[2018-12-31 09:11] LABS: BASO % 0.6 % (0-2.0); EOS % 0.3 % (0-4.5); HEMATOCRIT 43.9 % (35.4-49); HEMOGLOBIN 14.6 GM/dL (11.7-16.9); LYMPH % 15.9 % (8-40); MCH 30.6 pg (25.7-33.7); MCHC 33.3 g/dl (32.0-35.9); MEAN CELL VOLUME 91.8 fl (80-96); MEAN PLT VOLUME 9.1 fl (7.5-11.1); MONO % 11.6 % (3.8-10.2); NEUT % 71.6 % (42.8-82.8); PLATELET COUNT 141 K/MM3 (134-434); RBC 4.78 M/mm3 (4.00-5.60); RDW 13.5 % (11.9-15.9); WHITE BLOOD COUNT 5.4 K/mm3 (4.0-10.0)
[2018-12-31] MEDS ORDERED: PT OWN MED DRAWER 7, Y5N ONE ×2 (10:04→20:11)
[2018-12-31] MEDS: URSODIOL 300 MG CAPSULE PO SCH ×2 (10:18→21:11)
--- NOTE | 2018-12-31 12:58 | PN ---
Progress Note, Physician - Current Medication List Current Medications: Active Medications Cefazolin Sodium/Dextrose (Ancef 2 Gm Premixed Ivpb -) 2 gm IVPB Q8H-IV ИРИНА Last Admin: 12/31/18 10:17 Dose: 2 gm Metronidazole (Flagyl 500mg Premixed Ivpb -) 500 mg in 100 mls @ 100 mls/hr IVPB Q8H-IV ИРИНА Last Admin: 12/31/18 10:17 Dose: 100 mls/hr Morphine Sulfate (Morphine Sulfate) 1 mg IM Q6H PRN PRN Reason: PAIN LEVEL 6-10 Ondansetron HCl (Zofran Injection) 4 mg IVPUSH Q6H PRN PRN Reason: NAUSEA AND/OR VOMITING Ursodiol (Actigal -) 300 mg PO BID ИРИНА Last Admin: 12/31/18 10:18 Dose: 300 mg - Objective Vital Signs: Vital Signs Temperature 100.4 F H 12/31/18 10:00 Pulse Rate 88 12/31/18 10:00 Respiratory Rate 20 12/31/18 10:00 Blood Pressure 145/79 12/31/18 10:00 O2 Sat by Pulse Oximetry (%) 99 12/31/18 09:00 Constitutional: Yes: Well Nourished, No Distress, Calm Eyes: Yes: WNL, Conjunctiva Clear HENT: Yes: WNL, Atraumatic, Normocephalic Neck: Yes: WNL, Supple, Trachea Midline Cardiovascular: Yes: WNL, Regular Rate and Rhythm Respiratory: Yes: WNL, Regular, CTA Bilaterally Gastrointestinal: Yes: WNL, Normal Bowel Sounds, Soft Musculoskeletal: Yes: WNL Extremities: Yes: WNL Integumentary: Yes: WNL Neurological: Yes: WNL, Alert, Oriented ...Motor Strength: WNL Psychiatric: Yes: WNL, Alert, Oriented Labs: CBC, BMP 12/31/18 06:35 12/31/18 06:35 INR, PTT INR 1.18 (0.83-1.09) H 12/30/18 20:08 Problem List - Problems (1) Cholangitis Code(s): K83.09 - OTHER CHOLANGITIS (2) Hypokalemia Code(s): E87.6 - HYPOKALEMIA (3) Hypomagnesemia Code(s): E83.42 - HYPOMAGNESEMIA (4) Choledocholithiasis Code(s): K80.50 - CALCULUS OF BILE DUCT W/O CHOLANGITIS OR CHOLECYST W/O OBST (5) Elevated LFTs Code(s): R94.5 - ABNORMAL RESULTS OF LIVER FUNCTION STUDIES (6) Epigastric pain Code(s): R10.13 - EPIGASTRIC PAIN Assessment/Plan Recurrent biliary colic Likely secondary to residual stone vs sludge GI following MRCP done- awaiting report Started on Ancef, Flagyl, will continue Continue Actigal Monitor vitals CBC, BMP, CRP in am Epigastric pain Likely secondary to biliary colic Zofran prn Clear Liquid Diet Monitor CBC, BMP Monitor vitals Elevated LFTs Likely secondary to CBD Avoid Hepatotoxic Drugs Monitor LFTs Hypomagnesemia Likely secondary to PPI vs Vomiting Repleted in ED Will continue to monitor Hypokalemia Likely secondary to Hypovalemia Repleted in ED Monitor BMP
--- NOTE | 2018-12-31 14:54 | PN.GI ---
GI Progress Note Subjective: TEMPERATURE NOTED 100.4 MAX TODAY PATIENT DENIES ABD PAIN / N/V - Objective Vital Signs: Vital Signs Temperature 98.2 F 12/31/18 13:14 Pulse Rate 95 H 12/31/18 13:14 Respiratory Rate 20 12/31/18 13:14 Blood Pressure 127/63 12/31/18 13:14 O2 Sat by Pulse Oximetry (%) 99 12/31/18 09:00 Constitutional: Well Nourished, No Distress Eyes: Yes: WNL HENT: Yes: WNL Neck: Yes: WNL Cardiovascular: Yes: WNL Respiratory: Yes: WNL Gastrointestinal Inspection: Yes: WNL ...Auscultate: Yes: Normoactive Bowel Sounds Edema: No Labs: CBC, BMP 12/31/18 06:35 12/31/18 06:35 INR, PTT INR 1.18 (0.83-1.09) H 12/30/18 20:08 Problem List - Problems (1) Fever Assessment/Plan: F/U CULTURES CONTINUE ABX CLEAR LIQUID DIET LFT'S DOWN TRENDING AND MRCP DOES NOT REVEAL BILIARY DUCTAL DILATION OR CHOLEDOCHOLITHIASIS. THEREFORE, HOLD OFF ON REPEAT ERCP AT THIS TIME . MONITOR LFT'S DAILY IF HIS LFT'S CONTINUE TO DOWNTREND AND CLINICALLY HE IMPROVES HE CAN BE ADVANCED TO A FULL LIQUID DIET WILL F/U Code(s): R50.9 - FEVER, UNSPECIFIED (2) History of endoscopic retrograde cholangiopancreatography Code(s): Z98.890 - OTHER SPECIFIED POSTPROCEDURAL STATES (3) Choledocholithiasis Code(s): K80.50 - CALCULUS OF BILE DUCT W/O CHOLANGITIS OR CHOLECYST W/O OBST
[2018-12-31] MEDS ORDERED: RANITIDINE HCL 150 MG TABLET (FP) PO ONE (20:00)
[2018-12-31] MEDS ORDERED: PANTOPRAZOLE 40 MG TABLET (FP) PO ONE (20:16)
[2018-12-31] MEDS ORDERED: IBUPROFEN 600 MG TABLET (FP) PO PRN (20:35)
[2019-01-01] MEDS: ceFAZolin 2 GRAM PREMIX BAG IVPB SCH ×3 (02:36→17:41)
--- NOTE | 2019-01-01 07:48 | PN.GI ---
GI Progress Note Subjective: some abdominal pain after eating this morning - afebrile now; low grade temp noted - Objective Vital Signs: Vital Signs Temperature 97.8 F 01/01/19 06:00 Pulse Rate 54 L 01/01/19 06:00 Respiratory Rate 20 01/01/19 06:00 Blood Pressure 112/69 01/01/19 06:00 O2 Sat by Pulse Oximetry (%) 99 12/31/18 21:00 Constitutional: Well Nourished, No Distress, Calm Eyes: Yes: WNL HENT: Yes: WNL Neck: Yes: WNL Cardiovascular: Yes: WNL Respiratory: Yes: WNL Gastrointestinal Inspection: Yes: WNL ...Auscultate: Yes: Normoactive Bowel Sounds Extremities: Yes: WNL Edema: No Labs: CBC, BMP 12/31/18 06:35 12/31/18 06:35 INR, PTT INR 1.18 (0.83-1.09) H 12/30/18 20:08 Problem List - Problems (1) Fever Assessment/Plan: F/U CULTURES CONTINUE ABX advance to a low fat diet LFT'S DOWN TRENDING AND MRCP DOES NOT REVEAL BILIARY DUCTAL DILATION OR CHOLEDOCHOLITHIASIS. THEREFORE, HOLD OFF ON REPEAT ERCP AT THIS TIME . MONITOR LFT'S DAILY Code(s): R50.9 - FEVER, UNSPECIFIED (2) History of endoscopic retrograde cholangiopancreatography Code(s): Z98.890 - OTHER SPECIFIED POSTPROCEDURAL STATES (3) Choledocholithiasis Code(s): K80.50 - CALCULUS OF BILE DUCT W/O CHOLANGITIS OR CHOLECYST W/O OBST
[2019-01-01 08:00] LABS: BASO % 0.9 % (0-2.0); EOS % 2.2 % (0-4.5); HEMATOCRIT 44.8 % (35.4-49); LYMPH % 18.5 % (8-40); MCHC 33.5 g/dl (32.0-35.9); MEAN CELL VOLUME 92.3 fl (80-96); MEAN PLT VOLUME 8.1 fl (7.5-11.1); MONO % 20.2 % (3.8-10.2); NEUT % 58.2 % (42.8-82.8); PLATELET COUNT 138 K/MM3 (134-434); RBC 4.86 M/mm3 (4.00-5.60); RDW 13.5 % (11.9-15.9); WHITE BLOOD COUNT 4.8 K/mm3 (4.0-10.0)
--- NOTE | 2019-01-01 08:10 | PN ---
Progress Note, Physician - Current Medication List Current Medications: Active Medications Cefazolin Sodium/Dextrose (Ancef 2 Gm Premixed Ivpb -) 2 gm IVPB Q8H-IV ИРИНА Last Admin: 01/01/19 02:36 Dose: 2 gm Metronidazole (Flagyl 500mg Premixed Ivpb -) 500 mg in 100 mls @ 100 mls/hr IVPB Q8H-IV ИРИНА Last Admin: 01/01/19 02:02 Dose: 100 mls/hr Ibuprofen (Motrin -) 600 mg PO Q6H PRN PRN Reason: FEVER Last Admin: 12/31/18 21:11 Dose: 600 mg Morphine Sulfate (Morphine Sulfate) 1 mg IM Q6H PRN PRN Reason: PAIN LEVEL 6-10 Ondansetron HCl (Zofran Injection) 4 mg IVPUSH Q6H PRN PRN Reason: NAUSEA AND/OR VOMITING Ursodiol (Actigal -) 300 mg PO BID ИРИНА Last Admin: 12/31/18 21:11 Dose: 300 mg - Objective Vital Signs: Vital Signs Temperature 97.8 F 01/01/19 06:00 Pulse Rate 54 L 01/01/19 06:00 Respiratory Rate 20 01/01/19 06:00 Blood Pressure 112/69 01/01/19 06:00 O2 Sat by Pulse Oximetry (%) 99 12/31/18 21:00 Labs: CBC, BMP 01/01/19 07:15 INR, PTT INR 1.18 (0.83-1.09) H 12/30/18 20:08 Problem List - Problems (1) Cholangitis Code(s): K83.09 - OTHER CHOLANGITIS (2) Hypokalemia Code(s): E87.6 - HYPOKALEMIA (3) Hypomagnesemia Code(s): E83.42 - HYPOMAGNESEMIA (4) Choledocholithiasis Code(s): K80.50 - CALCULUS OF BILE DUCT W/O CHOLANGITIS OR CHOLECYST W/O OBST (5) Elevated LFTs Code(s): R94.5 - ABNORMAL RESULTS OF LIVER FUNCTION STUDIES (6) Epigastric pain Code(s): R10.13 - EPIGASTRIC PAIN Assessment/Plan Recurrent biliary colic Likely secondary to residual stone vs sludge GI following MRCP done- awaiting report Started on Ancef, Flagyl, will continue Continue Actigal Monitor vitals CBC, BMP, CRP in am Epigastric pain Likely secondary to biliary colic Zofran prn Clear Liquid Diet Monitor CBC, BMP Monitor vitals Elevated LFTs Likely secondary to CBD Avoid Hepatotoxic Drugs Monitor LFTs Hypomagnesemia Likely secondary to PPI vs Vomiting Repleted in ED Will continue to monitor Hypokalemia Likely secondary to Hypovalemia Repleted in ED Monitor BMP
[2019-01-01 08:24] LABS: ALBUMIN 3.1 g/dl (3.4-5.0); BILIRUBIN,TOTAL 0.6 mg/dL (0.2-1); CALCIUM 8.1 mg/dL (8.5-10.1); CREATININE 1.1 mg/dL (0.55-1.3); MAGNESIUM 2.4 mg/dL (1.8-2.4); PHOSPHOROUS 2.9 mg/dL (2.5-4.9); POTASSIUM 4.3 mmol/L (3.5-5.1); TOT PROT 6.4 g/dl (6.4-8.2)
[2019-01-01] MEDS ORDERED: PT OWN MED DRAWER 7, Y5N ONE ×2 (09:12→20:43)
[2019-01-01] MEDS: URSODIOL 300 MG CAPSULE PO SCH ×2 (09:17→21:05)
[2019-01-01 10:33] LABS: ANISOCYTOSIS 0; MACROCYTOSIS 0; PLATELET ESTIMATE DECREASED
[2019-01-01 12:41] VITALS: BMI 27.7
[2019-01-01] MEDS: PANTOPRAZOLE 40 MG TABLET (FP) PO SCH (14:34)
[2019-01-02] MEDS: ceFAZolin 2 GRAM PREMIX BAG IVPB SCH ×3 (01:45→17:09)
--- NOTE | 2019-01-02 07:52 | PN ---
Progress Note, Physician Chief Complaint: This is a 43 y/o man with a past medical history of GERD, s/p Cholecystectomy, recent admission 12/27-12/29 for Epigastric Pain, Transaminitis. Who presents to the ED with epigastric pain and nausea x 1 day Patient reports having severe epigastric pain burning and stabbing in sensation after eating. Patient reports having subjective fever and chills. Patient had recent ERCP- 4 Calculi - Current Medication List Current Medications: Active Medications Cefazolin Sodium/Dextrose (Ancef 2 Gm Premixed Ivpb -) 2 gm IVPB Q8H-IV [facility] Last Admin: 01/02/19 01:45 Dose: 2 gm Metronidazole (Flagyl 500mg Premixed Ivpb -) 500 mg in 100 mls @ 100 mls/hr IVPB Q8H-IV [facility] Last Admin: 01/02/19 02:22 Dose: 100 mls/hr Ibuprofen (Motrin -) 600 mg PO Q6H PRN PRN Reason: FEVER Last Admin: 12/31/18 21:11 Dose: 600 mg Morphine Sulfate (Morphine Sulfate) 1 mg IM Q6H PRN PRN Reason: PAIN LEVEL 6-10 Ondansetron HCl (Zofran Injection) 4 mg IVPUSH Q6H PRN PRN Reason: NAUSEA AND/OR VOMITING Pantoprazole Sodium (Protonix -) 40 mg PO DAILY [facility] Last Admin: 01/01/19 14:34 Dose: 40 mg Ursodiol (Actigal -) 300 mg PO BID [facility] Last Admin: 01/01/19 21:05 Dose: 300 mg - Objective Vital Signs: Vital Signs Temperature 98.0 F 01/02/19 06:00 Pulse Rate 68 01/02/19 06:00 Respiratory Rate 20 01/02/19 06:00 Blood Pressure 108/68 01/02/19 06:00 O2 Sat by Pulse Oximetry (%) 99 01/01/19 21:00 Constitutional: Yes: Well Nourished, No Distress, Calm Eyes: Yes: WNL, Conjunctiva Clear, EOM Intact HENT: Yes: WNL, Atraumatic, Normocephalic Neck: Yes: WNL, Supple, Trachea Midline Cardiovascular: Yes: WNL, Regular Rate and Rhythm Respiratory: Yes: WNL, Regular, CTA Bilaterally Gastrointestinal: Yes: WNL, Normal Bowel Sounds, Soft Genitourinary: Yes: WNL Musculoskeletal: Yes: WNL Extremities: Yes: WNL Edema: No Peripheral Pulses WNL: Yes Integumentary: Yes: WNL Neurological: Yes: WNL, Alert, Oriented ...Motor Strength: WNL Psychiatric: Yes: WNL, Alert, Oriented Labs: CBC, BMP 01/01/19 07:15 01/01/19 07:15 INR, PTT INR 1.18 (0.83-1.09) H 12/30/18 20:08 - ....Imaging MRI: Report Reviewed ( Impression: No evidence of choledocholithiasis. No evidence of dilatation of the common hepatic or common bile ducts. There is some irregularity of the contours of the intrahepatic biliary radicles which may be sequela of cholangitis) Problem List - Problems (1) Cholangitis Assessment/Plan: Most likely secondary to residual stone vs sludge GI following and appreciates input MRCP done continue Ancef, Flagyl Continue Actigal Code(s): K83.09 - OTHER CHOLANGITIS (2) History of endoscopic retrograde cholangiopancreatography Code(s): Z98.890 - OTHER SPECIFIED POSTPROCEDURAL STATES (3) Choledocholithiasis Code(s): K80.50 - CALCULUS OF BILE DUCT W/O CHOLANGITIS OR CHOLECYST W/O OBST (4) Transaminitis Assessment/Plan: monitor LTFs, trending down avoid hepatotoxic drugs Code(s): R74.0 - NONSPEC ELEV OF LEVELS OF TRANSAMNS & LACTIC ACID DEHYDRGNSE (5) Recurrent biliary colic Assessment/Plan: Zofran prn Clear Liquid Diet Monitor BMP L Code(s): K80.50 - CALCULUS OF BILE DUCT W/O CHOLANGITIS OR CHOLECYST W/O OBST (6) Hypokalemia Assessment/Plan: most likely secondary to vomiting monitor CMP and replete as needed Code(s): E87.6 - HYPOKALEMIA (7) Hypomagnesemia Assessment/Plan: most likely secondary to vomiting monitor CMP and replete as needed Code(s): E83.42 - HYPOMAGNESEMIA Impression/Plan Impression/Plan: FEN clear liquid diet relete electolytes as needed clear liquid diet, advance as per GI Dispo: maintain as in patient while on ABX discharge planning Visit type - Emergency Visit Emergency Visit: Yes ED Registration Date: 12/30/18 Care time: The patient presented to the Emergency Department on the above date and was hospitalized for further evaluation of their emergent condition. - New Patient This patient is new to me today: Yes Date on this admission: 01/02/19 - Critical Care Critical Care patient: No - Discharge Referral Referred to [facility] Med P.C.: No
[2019-01-02] MEDS ORDERED: PT OWN MED DRAWER 7, Y5N ONE (08:36)
[2019-01-02 08:39] LABS: BASO % 0.9 % (0-2.0); EOS % 1.2 % (0-4.5); HEMATOCRIT 46.2 % (35.4-49); HEMOGLOBIN 15.6 GM/dL (11.7-16.9); LYMPH % 20.9 % (8-40); MCH 30.7 pg (25.7-33.7); MCHC 33.8 g/dl (32.0-35.9); MEAN CELL VOLUME 90.9 fl (80-96); MEAN PLT VOLUME 8.4 fl (7.5-11.1); PLATELET COUNT 186 K/MM3 (134-434); RBC 5.09 M/mm3 (4.00-5.60); RDW 13.6 % (11.9-15.9); WHITE BLOOD COUNT 5.1 K/mm3 (4.0-10.0)
[2019-01-02 09:08] LABS: ALBUMIN 3.3 g/dl (3.4-5.0); BILIRUBIN,TOTAL 0.5 mg/dL (0.2-1); CALCIUM 8.5 mg/dL (8.5-10.1); CREATININE 0.9 mg/dL (0.55-1.3); MAGNESIUM 2.4 mg/dL (1.8-2.4); POTASSIUM 3.8 mmol/L (3.5-5.1); TOT PROT 6.8 g/dl (6.4-8.2)
[2019-01-02] MEDS: PANTOPRAZOLE 40 MG TABLET (FP) PO SCH (09:31)
[2019-01-02] MEDS: URSODIOL 300 MG CAPSULE PO SCH ×2 (09:31→21:08)
--- NOTE | 2019-01-02 09:32 | PN.GI ---
GI Progress Note Subjective: FEELING MUCH BETTER TODAY - DENIES ABD PAIN / N/V - Objective Vital Signs: Vital Signs Temperature 98.0 F 01/02/19 06:00 Pulse Rate 68 01/02/19 06:00 Respiratory Rate 20 01/02/19 06:00 Blood Pressure 108/68 01/02/19 06:00 O2 Sat by Pulse Oximetry (%) 99 01/01/19 21:00 Constitutional: Well Nourished, No Distress Eyes: Yes: WNL, Conjunctiva Clear HENT: Yes: WNL Neck: Yes: WNL Cardiovascular: Yes: WNL, Regular Rate and Rhythm Respiratory: Yes: WNL, Regular, CTA Bilaterally Gastrointestinal Inspection: Yes: WNL ...Auscultate: Yes: Normoactive Bowel Sounds Musculoskeletal: Yes: WNL Extremities: Yes: WNL Labs: CBC, BMP 01/02/19 08:20 01/02/19 08:20 INR, PTT INR 1.18 (0.83-1.09) H 12/30/18 20:08 Problem List - Problems (1) Fever Assessment/Plan: CULTURES NEGATIVE low fat diet LFT'S DOWN TRENDING AND MRCP DOES NOT REVEAL BILIARY DUCTAL DILATION OR CHOLEDOCHOLITHIASIS. THEREFORE, HOLD OFF ON REPEAT ERCP AT THIS TIME . MONITOR LFT'S DAILY ABX PER PRIMARY MEDICAL TEAM Code(s): R50.9 - FEVER, UNSPECIFIED (2) History of endoscopic retrograde cholangiopancreatography Code(s): Z98.890 - OTHER SPECIFIED POSTPROCEDURAL STATES (3) Choledocholithiasis Code(s): K80.50 - CALCULUS OF BILE DUCT W/O CHOLANGITIS OR CHOLECYST W/O OBST
[2019-01-02] MEDS ORDERED: MAG HYDROX/AL HYDROX/SIMETH 30 ML UNIT-DOSE CUP PO PRN (09:33)
[2019-01-03] MEDS: ceFAZolin 2 GRAM PREMIX BAG IVPB SCH ×3 (02:34→18:47)
[2019-01-03 07:46] LABS: BASO % 0.7 % (0-2.0); EOS % 2.1 % (0-4.5); HEMATOCRIT 42.5 % (35.4-49); HEMOGLOBIN 14.6 GM/dL (11.7-16.9); LYMPH % 23.4 % (8-40); MCH 31.1 pg (25.7-33.7); MCHC 34.5 g/dl (32.0-35.9); MEAN CELL VOLUME 90.3 fl (80-96); MEAN PLT VOLUME 8.3 fl (7.5-11.1); MONO % 14.4 % (3.8-10.2); NEUT % 59.4 % (42.8-82.8); PLATELET COUNT 195 K/MM3 (134-434); RBC 4.71 M/mm3 (4.00-5.60); RDW 13.2 % (11.9-15.9); WHITE BLOOD COUNT 5.1 K/mm3 (4.0-10.0)
[2019-01-03 08:02] LABS: ALBUMIN 3.1 g/dl (3.4-5.0); BILIRUBIN,TOTAL 0.6 mg/dL (0.2-1); CALCIUM 8.5 mg/dL (8.5-10.1); MAGNESIUM 2.4 mg/dL (1.8-2.4); POTASSIUM 4.1 mmol/L (3.5-5.1); TOT PROT 6.2 g/dl (6.4-8.2)
[2019-01-03] MEDS ORDERED: PT OWN MED DRAWER 7, Y5N ONE ×2 (09:43→09:54)
[2019-01-03] MEDS: PANTOPRAZOLE 40 MG TABLET (FP) PO SCH (09:48)
[2019-01-03] MEDS: URSODIOL 300 MG CAPSULE PO SCH (09:56)
--- NOTE | 2019-01-03 10:08 | PN ---
Progress Note, Physician Chief Complaint: abdominal pain, resolved History of Present Illness: Patient is a 43 year old male with a significant past medical history of GERD, s /p Cholecystectomy, recent admission 12/27-12/29 for epigastric pain, transaminitis. Who presents to the ED on 12/30/2018 with epigastric pain and nausea. He has been followed by GI since admission and on Ancef and Levaquin IV. Patient reports feeling better, tolerating diet and having no further abdominal pain. No nausea or vomiting. no chest pain or shortness of breath. His liver enzymes trending down. Needs a PCP referral. - Current Medication List Current Medications: Active Medications Al Hydroxide/Mg Hydroxide (Mylanta Oral Suspension -) 30 ml PO Q6H PRN PRN Reason: DYSPEPSIA Cefazolin Sodium/Dextrose (Ancef 2 Gm Premixed Ivpb -) 2 gm IVPB Q8H-IV [facility] Last Admin: 01/03/19 02:34 Dose: 2 gm Metronidazole (Flagyl 500mg Premixed Ivpb -) 500 mg in 100 mls @ 100 mls/hr IVPB Q8H-IV [facility] Last Admin: 01/03/19 01:38 Dose: 100 mls/hr Ibuprofen (Motrin -) 600 mg PO Q6H PRN PRN Reason: FEVER Last Admin: 12/31/18 21:11 Dose: 600 mg Ondansetron HCl (Zofran Injection) 4 mg IVPUSH Q6H PRN PRN Reason: NAUSEA AND/OR VOMITING Pantoprazole Sodium (Protonix -) 40 mg PO DAILY [facility] Last Admin: 01/02/19 09:31 Dose: 40 mg Ursodiol (Actigal -) 300 mg PO BID [facility] Last Admin: 01/02/19 21:08 Dose: 300 mg - Objective Vital Signs: Vital Signs Temperature 98.2 F 01/03/19 09:00 Pulse Rate 72 01/03/19 09:00 Respiratory Rate 18 01/03/19 09:00 Blood Pressure 106/71 01/03/19 09:00 O2 Sat by Pulse Oximetry (%) 98 01/02/19 21:00 Constitutional: Yes: Well Nourished Eyes: Yes: WNL HENT: Yes: WNL Neck: Yes: WNL Cardiovascular: Yes: Regular Rate and Rhythm Respiratory: Yes: WNL Gastrointestinal: Yes: Normal Bowel Sounds, Soft ...Rectal Exam: Yes: Deferred Genitourinary: Yes: WNL Musculoskeletal: Yes: WNL Extremities: Yes: WNL Integumentary: Yes: WNL Wound/Incision: Yes: Clean/Dry Neurological: Yes: WNL ...Motor Strength: WNL Psychiatric: Yes: WNL Labs: CBC, BMP 01/03/19 06:30 01/03/19 06:30 INR, PTT INR 1.18 (0.83-1.09) H 12/30/18 20:08 Problem List - Problems (1) Cholangitis Assessment/Plan: Most likely secondary to residual stone vs sludge GI following, patient to be discharged on oral antibiotics, Flagyl and Keflex x 10 days and follow up with GI as an outpatient. Continue Actigal BID No abdominal pain, no nausea or vomiting. Code(s): K83.09 - OTHER CHOLANGITIS (2) Fever Assessment/Plan: fever resolved Code(s): R50.9 - FEVER, UNSPECIFIED (3) History of endoscopic retrograde cholangiopancreatography Code(s): Z98.890 - OTHER SPECIFIED POSTPROCEDURAL STATES (4) Transaminitis Assessment/Plan: ast/alt trending down. repeat labs as an outpatient. Code(s): R74.0 - NONSPEC ELEV OF LEVELS OF TRANSAMNS & LACTIC ACID DEHYDRGNSE (5) Back pain Code(s): M54.9 - DORSALGIA, UNSPECIFIED Qualifiers: Back pain location: low back pain Chronicity: unspecified Back pain laterality: bilateral Sciatica presence: without sciatica Qualified Code(s) : M54.5 - Low back pain (6) Choledocholithiasis Assessment/Plan: GI follow up as an outpatient. Continue home medications along with PO antibiotics. Code(s): K80.50 - CALCULUS OF BILE DUCT W/O CHOLANGITIS OR CHOLECYST W/O OBST (7) Elevated LFTs Assessment/Plan: ast/alt trending down. Code(s): R94.5 - ABNORMAL RESULTS OF LIVER FUNCTION STUDIES (8) Epigastric pain Assessment/Plan: resolved, tolerating diet. Code(s): R10.13 - EPIGASTRIC PAIN Visit type - Emergency Visit Emergency Visit: Yes ED Registration Date: 01/03/19 Care time: The patient presented to the Emergency Department on the above date and was hospitalized for further evaluation of their emergent condition. - New Patient This patient is new to me today: Yes Date on this admission: 01/03/19 - Critical Care Critical Care patient: No - Discharge Referral Referred to [facility] No
--- NOTE | 2019-01-03 17:58 | DS ---
Physical Exam: SUBJECTIVE: Patient seen and examined at the bedside. OBJECTIVE: discharge home with GI follow up. Vital Signs Period Temp Pulse Resp BP Sys/Mendoza Pulse Ox Last 24 Hr 98.0 F-99.4 F 69-81 18-18 106-129/70-77 98-98 PHYSICAL EXAM GENERAL: The patient is awake, alert, and fully oriented, in no acute distress. HEAD: Normal with no signs of trauma. EYES: PERRL, extraocular movements intact, sclera anicteric, conjunctiva clear. ENT: Ears normal, nares patent, oropharynx clear without exudates, moist mucous membranes. NECK: Trachea midline, full range of motion, supple. LUNGS: Breath sounds equal, clear to auscultation bilaterally, no wheezes, no crackles, no accessory muscle use. HEART: Regular rate and rhythm, S1, S2 without murmur, rub or gallop. ABDOMEN: Soft, nontender, nondistended, normoactive bowel sounds, no guarding, no rebound, no hepatosplenomegaly, no masses. EXTREMITIES: 2+ pulses, warm, well-perfused, no edema. NEUROLOGICAL: Cranial nerves II through XII grossly intact. Normal speech, gait not observed. PSYCH: Normal mood, normal affect. SKIN: Warm, dry, normal turgor, no rashes or lesions noted. LABS Laboratory Results - last 24 hr 01/03/19 01/03/19 06:30 06:30 WBC 5.1 RBC 4.71 Hgb 14.6 Hct 42.5 MCV 90.3 MCH 31.1 MCHC 34.5 RDW 13.2 Plt Count 195 MPV 8.3 Absolute Neuts (auto) 3.1 Neutrophils % 59.4 Lymphocytes % 23.4 Monocytes % 14.4 H Eosinophils % 2.1 Basophils % 0.7 Nucleated RBC % 0 Sodium 141 Potassium 4.1 Chloride 106 Carbon Dioxide 30 Anion Gap 5 L BUN 10 Creatinine 1.0 Est GFR (CKD-EPI)AfAm 107.87 Est GFR (CKD-EPI)NonAf 93.07 Random Glucose 87 Calcium 8.5 Magnesium 2.4 Total Bilirubin 0.6 AST 14 L ALT 70 H Alkaline Phosphatase 103 Total Protein 6.2 L Albumin 3.1 L HOSPITAL COURSE: Date of Admission:01/03/19 Date of Discharge: 01/03/19 Patient is a 43 year old male with a significant past medical history of GERD, s /p Cholecystectomy, recent admission 12/27-12/29 for epigastric pain, transaminitis. Who presents to the ED on 12/30/2018 with epigastric pain and nausea. He has been followed by GI since admission and on Ancef and Levaquin IV. Patient reports feeling better, tolerating diet and having no further abdominal pain. No nausea or vomiting. no chest pain or shortness of breath. His liver enzymes trending down. HOSPITAL COURSE BY PROBLEM LIST. (1) Cholangitis Assessment/Plan: Most likely secondary to residual stone vs sludge GI following, patient to be discharged on oral antibiotics, Flagyl and Keflex x 10 days and follow up with GI as an outpatient. Continue Actigal BID No abdominal pain, no nausea or vomiting. (2) Fever Assessment/Plan: fever resolved (4) Transaminitis Assessment/Plan: ast/alt trending down. repeat labs as an outpatient. (5) Back pain Low back pain resolved. (6) Choledocholithiasis Assessment/Plan: GI follow up as an outpatient. Continue home medications along with PO antibiotics. (7) Elevated LFTs Assessment/Plan: ast/alt trending down. follow up as an outpatient. (8) Epigastric pain Assessment/Plan: resolved, tolerating diet. DISCHARGE PLAN: DISCHARGE HOME WITH GI FOLLOW UP. Minutes to complete discharge: 60 Discharge Summary Reason For Visit: CHOLANGITIS Current Active Problems Cholangitis (Acute) Fever (Acute) History of endoscopic retrograde cholangiopancreatography (Acute) Hypokalemia (Acute) Hypomagnesemia (Acute) Transaminitis (Acute) Condition: Good - Instructions Diet, Activity, Other Instructions: Mr. Saul Villagran. You were admitted to [facility] on 12/30/2018 for abdominal pain and your were found to have cholangitis (infection of the liver bile ducts) . Here are our recommendations: Abdominal pain You were found to have cholangitis. What is cholangitis? cholangitis is inflammation of the bile duct, usually caused by bacteria ascending from its junction with the duodenum (first part of the small intestine ). It tends to occur if the bile duct is already partially obstructed by gallstones. You will be sent home on the following medications: NEW MEDICATIONS: 1. Flagyl 500mg - this is an antibiotic that you will take three times per day at 8am, 2pm, 8pm for 10 days total (from 01/03/2019 through January 12). 2. Keflex 500mg - this is an antibiotic that you will take three times per day at 8am, 2pm, 8pm for 10 days total (from 01/03/2019 through January 12). 3. Actigal 300mg - twice per day at 8am and 8pm. This is your home medication. We have called in a 1 month supply to your pharmacy. Actigal helps to dissolve gallstones when they cannot be removed by surgery. FOLLOW UPS: Since you do not currently have a primary care doctor, we have sent you two referrals to doctors in this area. Please call their office and make a follow up appointment. They provide you with a sliding scale if you are un-insured. There is also the [facility] clinic located at [address] [place] [address] that offers services on a nominal sliding scale. It is important that you follow up to avoid re-hospitalization. Please see the GI specialist by calling for an appointment. Thank you for allowing us to care for you. Suellen Toure [employer] [facility] [phone] Referrals: Nelson Lundy MD [Staff Physician] - Fish Avina MD [Staff Physician] - Nata Waters MD [Staff Physician] - (call for an appointment) Disposition: HOME - Home Medications Comprehensive Discharge Medication List: Ambulatory Orders Omeprazole 20 mg PO PRN PRN 12/08/18 Ursodiol [Actigal -] 300 mg PO BID #60 capsule 12/29/18 Bacillus Coagulans [Probiotic] 1 each PO DAILY #14 capsule. 01/03/19 Cephalexin [Keflex] 500 mg PO TID #30 capsule 01/03/19 metroNIDAZOLE [Flagyl -] 500 mg PO TID #30 tablet 01/03/19 Problem List - Problems (1) Cholangitis Code(s): K83.09 - OTHER CHOLANGITIS (2) Fever Code(s): R50.9 - FEVER, UNSPECIFIED (3) History of endoscopic retrograde cholangiopancreatography Code(s): Z98.890 - OTHER SPECIFIED POSTPROCEDURAL STATES (4) Hypokalemia Code(s): E87.6 - HYPOKALEMIA (5) Hypomagnesemia Code(s): E83.42 - HYPOMAGNESEMIA (6) Transaminitis Code(s): R74.0 - NONSPEC ELEV OF LEVELS OF TRANSAMNS & LACTIC ACID DEHYDRGNSE (7) Back pain Code(s): M54.9 - DORSALGIA, UNSPECIFIED Qualifiers: Back pain location: low back pain Chronicity: unspecified Back pain laterality: bilateral Sciatica presence: without sciatica Qualified Code(s) : M54.5 - Low back pain (8) Choledocholithiasis Code(s): K80.50 - CALCULUS OF BILE DUCT W/O CHOLANGITIS OR CHOLECYST W/O OBST (9) Elevated LFTs Code(s): R94.5 - ABNORMAL RESULTS OF LIVER FUNCTION STUDIES (10) Epigastric pain Code(s): R10.13 - EPIGASTRIC PAIN This patient is new to me today: Yes Date on this admission: 01/03/19 Emergency Visit: Yes ED Registration Date: 01/03/19 Care time: The patient presented to the Emergency Department on the above date and was hospitalized for further evaluation of their emergent condition. Critical Care patient: No - Discharge Referral Referred to [facility] No
[2019-01-03 18:36] VITALS: BP 107/68; PULSE 75; TEMP 98.2
--- NOTE | 2019-01-03 18:57 | PN.GI ---
GI Progress Note Subjective: GI NOte: Sam was seen before his discharge. He is pain free. His LFTs have almost completely normalized. His blood cultures are clear - Objective Vital Signs: Vital Signs Temperature 98.2 F 01/03/19 18:00 Pulse Rate 75 01/03/19 18:00 Respiratory Rate 18 01/03/19 18:00 Blood Pressure 107/68 01/03/19 18:00 O2 Sat by Pulse Oximetry (%) 98 01/03/19 09:00 Microbiology 12/30/18 10:58 Blood - Peripheral Venous Blood Culture - Preliminary NO GROWTH OBTAINED AFTER 96 HOURS, INCUBATION TO CONTINUE FOR 1 DAYS. 12/30/18 10:58 Blood - Peripheral Venous Blood Culture - Preliminary NO GROWTH OBTAINED AFTER 96 HOURS, INCUBATION TO CONTINUE FOR 1 DAYS. Laboratory Tests 12/30/18 12/30/18 12/31/18 10:58 19:50 06:35 WBC 8.8 Total Bilirubin 0.6 AST 34 ALT 174 H Alkaline Phosphatase 123 H C-Reactive Protein 6.4 H Total Amylase 72 Lipase 158 01/03/19 01/03/19 06:30 06:30 WBC 5.1 Total Bilirubin 0.6 AST 14 L ALT 70 H Alkaline Phosphatase 103 C-Reactive Protein Total Amylase Lipase Constitutional: Calm ...Auscultate: Yes: Normoactive Bowel Sounds ...Palpate: Yes: Soft, Other (nontender) Labs: CBC, BMP 01/03/19 06:30 01/03/19 06:30 INR, PTT INR 1.18 (0.83-1.09) H 12/30/18 20:08 Assessment/Plan Impression Biliary colic and cholangitis due to residual stone, stone fragments or thick sludge Plan: No GI objections to discharge on oral antibiotics Continue Actigal until followup in the office Problem List - Problems (1) Fever Assessment/Plan: I suspect that Sam has residual infected bile and stone fragments within is duct which have now passed. Code(s): R50.9 - FEVER, UNSPECIFIED (2) Recurrent biliary colic Code(s): K80.50 - CALCULUS OF BILE DUCT W/O CHOLANGITIS OR CHOLECYST W/O OBST (3) History of endoscopic retrograde cholangiopancreatography Code(s): Z98.890 - OTHER SPECIFIED POSTPROCEDURAL STATES (4) Choledocholithiasis Code(s): K80.50 - CALCULUS OF BILE DUCT W/O CHOLANGITIS OR CHOLECYST W/O OBST (5) Hx laparoscopic cholecystectomy Code(s): Z90.49 - ACQUIRED ABSENCE OF OTHER SPECIFIED PARTS OF DIGESTIVE TRACT (6) Cholangitis Code(s): K83.09 - OTHER CHOLANGITIS
== END 2019-01-03 18:53 | disposition home or self-care (01) ==
LOC: JER 10:06 → JERBED 17:16 → J5S 20:36 → OBSVTOIN 01-03 12:01
PROVIDERS: ADMIT Internal Medicine; ATTEND Nurse Practitioner Family
DX: K80.70 Calculus of gallbladder and bile duct without cholecystitis without obstruction (principal); R50.9 Fever, unspecified; R74.0 Nonspecific elevation of levels of transaminase and lactic acid dehydrogenase [LDH]; M54.9 Dorsalgia, unspecified; R94.5 Abnormal results of liver function studies; R10.13 Epigastric pain; K21.9 Gastro-esophageal reflux disease without esophagitis; E87.6 Hypokalemia; E83.42 Hypomagnesemia; K83.09 Other cholangitis
CPT/HCPCS: 36415; 71046-TC-FY; 74181-TC; 76000-TC-FY; 80053; 81003; 82150; 82248; 83605; 83690; 83735; 84100; 85025; 85610; 86140; 87040; 87086; 93005; 93010; 99284-25; G0378; J0131

== ENCOUNTER 2019-05-26 10:29 | Day surgery (SDC) | payer OTHER ==
[2019-05-25 13:39] VITALS: BMI 27.8
[2019-05-26] MEDS ORDERED: CEFAZOLIN 1 GM/D5W 1 GM/50 ML BAG ONE (12:44)
[2019-05-26] MEDS ORDERED: ceFAZolin SODIUM 1 GM VIAL IVPB ONE (12:47)
[2019-05-26 13:45] VITALS: TEMP 97.8
[2019-05-26 15:11] VITALS: BP 120/80; PULSE 62
== END 2019-05-26 15:11 | disposition home or self-care (01) ==
LOC: JASU-ENDO 10:29
PROVIDERS: ATTEND Internal Medicine Gastroenterology
PROC: 0FC98ZZ Extirpation of Matter from Common Bile Duct, Via Natural or Artificial Opening Endoscopic (ICD-10-PCS; principal; 2019-05-26 11:30)
DX: K80.50 Calculus of bile duct without cholangitis or cholecystitis without obstruction (principal)
CPT/HCPCS: 76000-TC-FY

== ENCOUNTER 2019-08-17 12:26 | Day surgery (SDC) | payer OTHER ==
[2019-08-15 12:19] VITALS: BMI 28.1
[2019-08-17 13:15] LABS: BASO % 0.7 % (0-2.0); EOS % 2.1 % (0-4.5); HEMATOCRIT 48.3 % (35.4-49); HEMOGLOBIN 16.4 GM/dL (11.7-16.9); LYMPH % 34.1 % (8-40); MCHC 33.9 g/dl (32.0-35.9); MEAN CELL VOLUME 91.2 fl (80-96); MEAN PLT VOLUME 8.3 fl (7.5-11.1); NEUT % 55.1 % (42.8-82.8); PLATELET COUNT 208 K/MM3 (134-434); RDW 13.7 % (11.9-15.9); WHITE BLOOD COUNT 5.9 K/mm3 (4.0-10.0)
[2019-08-17 13:26] LABS: INR 1.03 (0.83-1.09); PROTHROMBIN TIME (PATIENT) 12.2 SEC (9.7-13.0)
[2019-08-17] MEDS ORDERED: PROPOFOL 20 ML ONE ×2 (13:32)
[2019-08-17] MEDS ORDERED: MIDAZOLAM HCL 2 MG/2 ML SINGLE DOSE VIAL ONE (13:37)
--- NOTE | 2019-08-17 13:42 | HP ---
History & Physical Update - History History: No Change - Physical Physical: No Change - Assessment Assessment: No Change - Plan Plan: No Change (for excision sebaceous cyst of the forehead; r/b/t/a's d/w the patient and informed consent obtained; he understands he will have a scar; all reasonable efforts will be made to minimize it.)
[2019-08-17] MEDS ORDERED: LIDOCAINE HCL 1%, 10 MG/ML (20ML VIAL) ONE (13:44)
[2019-08-17] MEDS ORDERED: LIDOCAINE HCL 1% EPINEPHRINE 1:200,000 30 ML VIAL (PF) ONE (13:59)
[2019-08-17] MEDS ORDERED: BUPIVACAINE HCL/PF 0.5% (5 MG/ML) 30 ML VIAL IJ ONE ×2 (14:09)
[2019-08-17] MEDS ORDERED: BENZOIN/ALOE VERA/STORAX/TOLU 58 ML BOTTLE ONE (14:29)
--- NOTE | 2019-08-17 14:50 | OP ---
Operative Note - Note: Operative Date: 08/17/19 Pre-Operative Diagnosis: soft tissue mass of frontal face (forehead) Operation: excision soft tissue mass Findings: 2.0 cm. lipoma Post-Operative Diagnosis: Same as Pre-op Surgeon: Tk Frank Anesthesia: MAC Specimens Removed: lipoma Estimated Blood Loss (mls): 5
[2019-08-17] MEDS ORDERED: ACETAMINOPHEN WITH CODEINE 300MG/30MG TABLET PO PRN ×2 (14:52→14:54)
[2019-08-17 14:56] VITALS: TEMP 97.8
[2019-08-17 15:54] VITALS: BP 107/63; PULSE 67
--- NOTE | 2019-08-18 15:55 | OP ---
DATE OF OPERATION: 08/17/2019 PREOPERATIVE DIAGNOSIS: Soft tissue mass of the frontal face (forehead). POSTOPERATIVE DIAGNOSIS: Soft tissue mass of the frontal face (forehead). PROCEDURE: Excision of soft tissue mass. SURGEON: Tk Frank MD ANESTHESIA: Local with IV sedation. OPERATIVE FINDINGS: There was an approximately 2.0-cm lipoma in the midline of the frontal area of the forehead. The rest of the findings were unremarkable. DESCRIPTION OF PROCEDURE: The patient was placed on the operating room table in a supine position, and after the administration of intravenous sedation, the area over the mass was prepped with ChloraPrep and draped in sterile fashion. A time-out was taken, incision mapped out, and the area infiltrated with 1% Xylocaine, 0.5% Marcaine in equal concentrations. Excision was made with a scalpel and taken down through skin and subcutaneous tissue. Frontal muscle was atraumatically mobilized out of the operative field and then the mass was identified and dissected free from the surrounding tissue using cautery and blunt dissection. The mass was adherent to the galea of the skull, and it was removed without incident. The mass was passed off the operative field and sent for pathological examination. Hemostasis was secured with electrocautery, the wound irrigated with normal saline, and the incision closed in layers with interrupted 4-0 Vicryl for the deep dermis and 4-0 Monocryl in a subcuticular, continuous fashion to reapproximate the skin edges. Steri-Strips , 2 x 2 dressings, and a Tegaderm were placed and the procedure terminated at this point and the patient transferred to the post anesthesia care unit in stable condition awake and alert. ESTIMATED BLOOD LOSS: 5 mL. REPLACEMENTS: Crystalloid. DRAINS: None. SPECIMENS: Lipoma to Pathology. I, Tk Frank, was physically present in the operating room from the time the patient was placed on the operating room table until he was transferred to the post anesthesia care unit in [place]. MD BENJI [id number] MTDD
--- NOTE | 2019-08-21 15:55 | PATH ---
Surgical Pathology Report Patient Name: ANAND VERDUGO Med. Rec. #: [id number] /Age/Gender: 1975 (Age: 44) / M Account: [id number] Location: [facility] SURGICAL Taken: 08/17/2019 Received: 08/18/2019 Reported: 08/21/2019 Physicians: Tk Frank MD Specimen(s) Received FOREHEAD, LIPOMA Clinical History Soft tissue mass of forehead Final Diagnosis FOREHEAD, LIPOMA, EXCISION: MATURE FIBROADIPOSE TISSUE CONSISTENT WITH LIPOMA. Electronically Signed Erica Mckoy M.D. Gross Description Received in formalin labeled "lipoma of forehead," is a 1.2 x 0.9 x 0.3 cm aggregate of small portions of yellow, lobulated adipose tissue. The specimen is submitted in toto in one cassette. DL/08/18/2019 saudi08/18/2019
== END 2019-08-17 15:50 | disposition home or self-care (01) ==
LOC: JASU-SURG 12:26
PROVIDERS: ATTEND Surgery
PROC: 0JB10ZZ Excision of Face Subcutaneous Tissue and Fascia, Open Approach (ICD-10-PCS; principal; 2019-08-17 15:00)
DX: D21.0 Benign neoplasm of connective and other soft tissue of head, face and neck (principal)
CPT/HCPCS: 36415; 85025; 85610; 88304-TC

== ENCOUNTER 2020-07-13 13:39 | Emergency (ER) | payer OTHER ==
[2020-07-13 13:54] VITALS: BP 128/87; PULSE 84; TEMP 98.2; BMI 27.5
[2020-07-13] MEDS ORDERED: LIDOCAINE 5% TOPICAL PATCH TP ONE (14:57)
[2020-07-13] MEDS ORDERED: ACETAMINOPHEN 500 MG TABLET (FP) PO ONE (14:57)
[2020-07-13] MEDS ORDERED: LIDOCAINE 5% TOPICAL PATCH ONE (15:04)
[2020-07-13] MEDS ORDERED: ACETAMINOPHEN 500 MG TABLET (FP) ONE (15:06)
[2020-07-13] MEDS ORDERED: LIDOCAINE PATCH REMOVAL MC SCH (22:00)
== END 2020-07-13 16:10 | disposition home or self-care (01) ==
LOC: JER 13:39
DX: S16.1XXA Strain of muscle, fascia and tendon at neck level, initial encounter (principal)
CPT/HCPCS: 99284-25

== ENCOUNTER 2021-06-27 20:41 | Emergency (ER) | payer OTHER ==
[2021-06-27 20:46] VITALS: BP 135/81; PULSE 91; TEMP 98; BMI 28.7
[2021-06-27] MEDS ORDERED: MECLIZINE HCL 25 MG TABLET (FP) PO ONE (21:17)
[2021-06-27] MEDS ORDERED: ACETAMINOPHEN/CAFFEINE/BUTALBITAL 1 TAB PO ONE (21:18)
[2021-06-27] MEDS ORDERED: ACETAMINOPHEN/CAFFEINE/BUTALBITAL 1 TAB ONE (21:31)
[2021-06-27 21:56] LABS: BASO % 0.8 % (0-2.0); EOS % 1.6 % (0-4.5); HEMATOCRIT 47.2 % (35.4-49); HEMOGLOBIN 16.6 GM/dL (11.7-16.9); LYMPH % 21.4 % (8-40); MCH 31.7 pg (25.7-33.7); MCHC 35.1 g/dl (32.0-35.9); MEAN CELL VOLUME 90.4 fl (80-96); MEAN PLT VOLUME 8.3 fl (7.5-11.1); MONO % 5.6 % (3.8-10.2); NEUT % 70.6 % (42.8-82.8); PLATELET COUNT 215 10^3/uL (134-434); RBC 5.23 M/mm3 (4.00-5.60); RDW 13.3 % (11.9-15.9); WHITE BLOOD COUNT 8.5 K/mm3 (4.0-10.0)
[2021-06-27 22:16] LABS: CHLORIDE 106 mmol/L (98-107); SODIUM 138 mmol/L (136-145)
[2021-06-27 22:18] LABS: CALCIUM 8.7 mg/dL (8.5-10.1)
[2021-06-27 22:19] LABS: ALBUMIN 3.8 g/dl (3.4-5.0); ANION GAP 7 MMOL/L (8-16); BLOOD UREA NITROGEN 19.4 mg/dL (7-18); CO2 25 mmol/L (21-32); GLUCOSE,RANDOM 94 mg/dL (74-106)
[2021-06-27 22:22] LABS: CREATININE 1.5 mg/dL (0.55-1.3); SGOT/AST 26 U/L (15-37); SGPT/ALT 72 U/L (13-61)
[2021-06-27 22:23] LABS: BILIRUBIN,TOTAL 0.4 mg/dL (0.2-1); TOT PROT 7.4 g/dl (6.4-8.2)
[2021-06-27 22:25] LABS: ALK PHOS 69 U/L (45-117)
[2021-06-27] MEDS ORDERED: SODIUM CHLORIDE 0.9% 500 ML INFUS.BAG IV ONE (22:28)
== END 2021-06-27 23:20 | disposition home or self-care (01) ==
LOC: JER 20:41
DX: R42 Dizziness and giddiness (principal)
CPT/HCPCS: 36415; 70450-TC; 80053; 84443; 84484; 85025; 93005; 93010; 99285-25

== ENCOUNTER 2022-05-14 11:35 | Emergency (ER) | payer OTHER ==
[2022-05-14 11:51] VITALS: BP 143/86; PULSE 71; RESP 18; TEMP 98.1; BMI 28.1
[2022-05-14] MEDS ORDERED: PSEUDOEPHEDRINE HCL 30 MG TABLET PO ONE (12:34)
[2022-05-14] MEDS ORDERED: PSEUDOEPHEDRINE HCL 60 MG TABLET PO ONE (12:36)
[2022-05-14] MEDS ORDERED: PSEUDOEPHEDRINE HCL 60 MG TABLET ONE (12:36)
== END 2022-05-14 12:44 | disposition home or self-care (01) ==
LOC: JERFT 11:35
DX: J30.0 Vasomotor rhinitis (principal)
CPT/HCPCS: 99283-25

== ENCOUNTER 2023-01-12 19:18 | Emergency (ER) | payer OTHER ==
[2023-01-12 19:25] VITALS: BP 128/95; PULSE 104; RESP 20; TEMP 99.1; BMI 27.5
[2023-01-12 20:29] LABS: PH,URINE 5.5 (5.0-8.0); URINE APPEARANCE CLEAR; URINE BILIRUBIN NEGATIVE (NEGATIVE); URINE COLOR YELLOW; URINE GLUCOSE (UA) NEGATIVE (NEGATIVE); URINE KETONE NEGATIVE (NEGATIVE); URINE LEUK ESTERASE NEGATIVE (NEGATIVE); URINE NITRITE NEGATIVE (NEGATIVE); URINE PROTEIN NEGATIVE (NEGATIVE); URINE UROBILINOGEN 0.2 mg/dL (0.2-1.0)
[2023-01-12] MEDS ORDERED: CYCLOBENZAPRINE HCL 10 MG TABLET (FP) PO ONE (21:55)
[2023-01-12] MEDS ORDERED: ACETAMINOPHEN 500 MG TABLET (FP) PO ONE (21:55)
[2023-01-12] MEDS ORDERED: TAMSULOSIN HCL 0.4 MG CAP PO ONE (21:55)
[2023-01-12] MEDS ORDERED: IBUPROFEN 600 MG TABLET (FP) PO ONE ×2 (21:55→22:02)
[2023-01-12] MEDS ORDERED: CYCLOBENZAPRINE HCL 10 MG TABLET (FP) ONE (22:02)
[2023-01-12] MEDS ORDERED: ACETAMINOPHEN 500 MG TABLET (FP) ONE (22:02)
[2023-01-12] MEDS ORDERED: TAMSULOSIN HCL 0.4 MG CAP ONE (22:04)
== END 2023-01-12 22:11 | disposition home or self-care (01) ==
LOC: JER 19:18
DX: R10.2 Pelvic and perineal pain (principal); N32.89 Other specified disorders of bladder; R35.0 Frequency of micturition; R39.11 Hesitancy of micturition; N40.1 Benign prostatic hyperplasia with lower urinary tract symptoms
CPT/HCPCS: 36415; 76856-TC; 81003; 87086; 87491; 87591; 99284-25

== ENCOUNTER 2023-07-29 14:00 | Emergency (ER) | payer OTHER ==
[2023-07-29 14:12] VITALS: TEMP 99.5; BMI 28.7
[2023-07-29] MEDS ORDERED: MAG HYDROX/AL HYDROX/SIMETH 30 ML UNIT-DOSE CUP PO ONE (14:59)
[2023-07-29] MEDS ORDERED: FAMOTIDINE 20 MG TABLET PO ONE (14:59)
[2023-07-29] MEDS ORDERED: MAG HYDROX/AL HYDROX/SIMETH 30 ML UNIT-DOSE CUP ONE (15:03)
[2023-07-29] MEDS ORDERED: FAMOTIDINE 20 MG TABLET ONE (15:03)
[2023-07-29 16:46] LABS: EOS % 2.2 % (0-4.5); HEMOGLOBIN 16.6 GM/dL (11.7-16.9); LYMPH % 23.7 % (8-40); MCH 30.9 pg (25.7-33.7); MCHC 33.9 g/dl (32.0-35.9); MEAN CELL VOLUME 91.3 fl (80-96); MEAN PLT VOLUME 7.9 fl (7.5-11.1); MONO % 7.2 % (3.8-10.2); NEUT % 65.9 % (42.8-82.8); PLATELET COUNT 228 10^3/uL (134-434); RBC 5.37 M/mm3 (4.00-5.60); RDW 13.9 % (11.9-15.9); WHITE BLOOD COUNT 6.9 K/mm3 (4.0-10.0)
[2023-07-29 17:10] LABS: POTASSIUM 4.4 mmol/L (3.5-5.1)
[2023-07-29 17:12] LABS: ALBUMIN 3.8 g/dl (3.4-5.0); BLOOD UREA NITROGEN 17.6 mg/dL (7-18); CALCIUM 9.3 mg/dL (8.5-10.1)
[2023-07-29 17:17] LABS: BILIRUBIN,TOTAL 0.6 mg/dL (0.2-1); TOT PROT 7.6 g/dl (6.4-8.2)
[2023-07-29 17:26] LABS: CREATININE 1.2 mg/dL (0.55-1.3)
[2023-07-29 17:55] VITALS: BP 122/87; PULSE 68; RESP 16
== END 2023-07-29 18:05 | disposition home or self-care (01) ==
LOC: JER 14:00
DX: R10.13 Epigastric pain (principal); R10.12 Left upper quadrant pain
CPT/HCPCS: 36415; 76705-TC; 80053; 83690; 85025; 99284-25

== ENCOUNTER 2023-11-11 17:46 | Emergency (ER) | payer OTHER ==
[2023-11-11 17:56] VITALS: BP 130/81; PULSE 60; RESP 18; TEMP 97.9; BMI 28.7
[2023-11-11] MEDS ORDERED: predniSONE 20 MG TABLET (UD) ONE (18:38)
[2023-11-11] MEDS ORDERED: guaiFENesin/D-METHORPHAN HB 10 ML UNIT-DOSE CUPS ONE (18:38)
[2023-11-11] MEDS: predniSONE 20 MG TABLET (UD) PO ONE (18:43)
[2023-11-11] MEDS: guaiFENesin/D-METHORPHAN HB 10 ML UNIT-DOSE CUPS PO ONE (18:43)
== END 2023-11-11 19:18 | disposition home or self-care (01) ==
LOC: JERFT 17:46
DX: J40 Bronchitis, not specified as acute or chronic (principal); R09.82 Postnasal drip; R05.9 Cough, unspecified; Z20.822 Contact with and (suspected) exposure to COVID-19
CPT/HCPCS: 0241U-QW; 71046-TC-FY; 99284-25

== ENCOUNTER 2024-02-22 17:34 | Emergency (ER) | payer OTHER ==
[2024-02-22 17:53] VITALS: BP 126/81; PULSE 75; RESP 16; TEMP 98.7; BMI 28.7
== END 2024-02-22 18:48 | disposition home or self-care (01) ==
LOC: JERFT 17:34
DX: R21 Rash and other nonspecific skin eruption (principal); B35.6 Tinea cruris; L29.9 Pruritus, unspecified
CPT/HCPCS: 99283-25

== ENCOUNTER 2024-03-31 15:15 | Emergency (ER) | payer OTHER ==
[2024-03-31 15:44] VITALS: BP 134/84; PULSE 94; RESP 18; TEMP 98.7; BMI 28.3
[2024-03-31 17:10] LABS: EPI CELLS 2 /uL (0-25.1); HYALINE CASTS 0 /uL (0-3.1); PH,URINE 5.5 (5.0-8.0); URINE APPEARANCE CLEAR; URINE BACTERIA 1 /uL (0-1359); URINE BILIRUBIN NEGATIVE (NEGATIVE); URINE COLOR YELLOW; URINE GLUCOSE (UA) NEGATIVE (NEGATIVE); URINE KETONE TRACE (NEGATIVE); URINE LEUK ESTERASE NEGATIVE (NEGATIVE); URINE NITRITE NEGATIVE (NEGATIVE); URINE PROTEIN NEGATIVE (NEGATIVE); URINE UROBILINOGEN 0.2 mg/dL (0.2-1.0); URINE WBC 9 /uL (0-25.8)
[2024-03-31 20:32] LABS: URINE RBC 97.1 /uL (0-23.9)
== END 2024-03-31 19:13 | disposition home or self-care (01) ==
LOC: JER 15:15
DX: R10.30 Lower abdominal pain, unspecified (principal); N39.9 Disorder of urinary system, unspecified
CPT/HCPCS: 74176-TC; 76775-TC; 81003; 87086; 99284-25